=== PATIENT | female | born 1940 | race Caucasian/White ===

== ENCOUNTER → 2016-11-19 | Outpatient (REF) | payer MEDICARE ==
[~2016-11-19] MED LIST: AMIO20TA FT; ASPI81TA85 PO; ATOR40TA PO; CHLO25TA PO; COEN200C PO; CRAN500C2 PO; LEVO50TA5 PO; NITR3TA SL; PACE200T PO; PRIL20CA9 PO; TRAN2TAB4 PO; VITA200016 PO; XANA0.5T PO
[2016-11-19 12:51] LABS: ALBUMIN 3.7 GM/DL (3.2-5.2); ALBUMIN/GLOBULIN RATIO 1.54 (1.00-1.93); BILIRUBIN,TOTAL 0.5 MG/DL (0.2-1.0); CALCIUM LEVEL 8.7 MG/DL (8.8-10.2); CREATININE FOR GFR 1.15 MG/DL (0.55-1.02); FREE T4 1.62 NG/DL (0.76-1.46); GLOMERULAR FILTRATION RATE 48.6 (>39); POTASSIUM SERUM 3.7 MEQ/L (3.5-5.1); TOTAL PROTEIN 6.1 GM/DL (6.4-8.2)
== END ==
LOC: M SFHCPLAZ 09:36
PROVIDERS: ATTEND Nurse Practitioner Family
DX: I10 Essential (primary) hypertension (principal); E03.9 Hypothyroidism, unspecified; E55.9 Vitamin D deficiency, unspecified

== ENCOUNTER → 2016-11-30 | Outpatient (REF) | payer MEDICARE | LOC: M SFHCPLAZ 13:16 | PROVIDERS: ATTEND Nurse Practitioner Family | DX: I10 Essential (primary) hypertension (principal) | CPT/HCPCS: 82043; G0463 ==

== ENCOUNTER → 2017-02-12 | Outpatient (REF) | payer MEDICARE | LOC: M LAB REF 11:37 | PROVIDERS: ATTEND Nurse Practitioner Family | DX: R30.0 Dysuria (principal) ==

== ENCOUNTER → 2017-03-01 | Outpatient (CLI) | payer MEDICARE ==
[2017-03-01 14:35] LABS: FREE T4 1.77 NG/DL (0.76-1.46)
== END ==
LOC: M LAB 13:12
PROVIDERS: ATTEND Family Medicine
DX: E03.9 Hypothyroidism, unspecified (principal)

== ENCOUNTER → 2017-03-24 | Outpatient (CLI) | payer MEDICARE ==
[2017-03-24 18:35] LABS: BASO # 0.1 K/mm3 (0.0-0.2); BASO % 0.9 % (0.0-1.0); EOS # 0.2 K/mm3 (0.0-0.50); EOS % 2.1 % (0.0-3.0); LARGE UNSTAINED CELL # 0.2 K/mm3 (0.0-0.4); LARGE UNSTAINED CELL % 2.1 % (0.0-4.0); LYMPH # 0.8 K/mm3 (1.5-4.5); LYMPH % 10.5 % (24.0-44.0); MEAN CORPUSCULAR HEMOGLOBIN 27.2 pg (27.0-33.0); MEAN CORPUSCULAR HGB CONC 32.7 g/dl (32.0-36.5); MEAN CORPUSCULAR VOLUME 83.2 fl (80.0-96.0); MONO # 0.4 K/mm3 (0.0-0.8); MONO % 5.7 % (0.0-5.0); NEUTROPHILS # 6.1 K/mm3 (1.8-7.7); NEUTROPHILS % 78.6 % (36.0-66.0); PLATELET COUNT, AUTOMATED 240 k/mm3 (150-450); RED CELL DISTRIBUTION WIDTH 14.8 % (11.5-14.5); WHITE BLOOD COUNT 7.8 K/mm3 (4.0-10.0)
[2017-03-24 18:47] LABS: FREE T4 1.42 NG/DL (0.76-1.46)
== END ==
LOC: M LAB 16:58
PROVIDERS: ATTEND Nurse Practitioner Family
DX: R53.83 Other fatigue (principal); E03.9 Hypothyroidism, unspecified; E55.9 Vitamin D deficiency, unspecified

== ENCOUNTER → 2017-03-24 | Outpatient (REF) | payer MEDICARE | LOC: M SFHCPLAZ 16:11 | PROVIDERS: ATTEND Nurse Practitioner Family | DX: R53.83 Other fatigue (principal); E03.9 Hypothyroidism, unspecified; E55.9 Vitamin D deficiency, unspecified; Z53.8 Procedure and treatment not carried out for other reasons ==

== ENCOUNTER → 2017-05-12 | Outpatient (REF) | payer MEDICARE ==
[~2017-05-12] MED LIST changes: -ATOR40TA PO; +ATOR40TA75 PO; -TRAN2TAB4 PO; +TRAN2TAB8 PO
== END ==
LOC: M SFHCLERA 11:33
PROVIDERS: ATTEND Dermatology
DX: D23.4 Other benign neoplasm of skin of scalp and neck (principal)
CPT/HCPCS: 11100; 88305; G0463

== ENCOUNTER → 2017-05-31 | Outpatient (CLI) | payer MEDICARE ==
[2017-05-31 11:02] LABS: ALBUMIN 3.6 GM/DL (3.2-5.2); ALBUMIN/GLOBULIN RATIO 1.24 (1.00-1.93); BILIRUBIN,TOTAL 0.5 MG/DL (0.2-1.0); CALCIUM LEVEL 8.9 MG/DL (8.8-10.2); CREATININE FOR GFR 1.07 MG/DL (0.55-1.02); FREE T4 1.31 NG/DL (0.76-1.46); GLOMERULAR FILTRATION RATE 52.8 (>39); POTASSIUM SERUM 4.1 MEQ/L (3.5-5.1); TOTAL PROTEIN 6.5 GM/DL (6.4-8.2)
== END ==
LOC: M LAB 09:41
PROVIDERS: ATTEND Nurse Practitioner Family
DX: N18.3 Chronic kidney disease, stage 3 (moderate) (principal); E03.9 Hypothyroidism, unspecified; I12.9 Hypertensive chronic kidney disease with stage 1 through stage 4 chronic kidney disease, or unspecified chronic kidney disease

== ENCOUNTER → 2017-07-30 | Outpatient (CLI) | payer MEDICARE ==
[2017-07-30 14:57] LABS: FREE T4 1.49 NG/DL (0.76-1.46)
== END ==
LOC: M LAB 13:17
PROVIDERS: ATTEND Family Medicine
DX: E03.9 Hypothyroidism, unspecified (principal)

== ENCOUNTER → 2017-09-13 | Outpatient (REF) | payer MEDICARE ==
[2017-09-13 15:55] LABS: IONIZED CALCIUM 4.7 MG/DL (4.5-5.3)
[2017-09-13 16:48] LABS: CALCIUM LEVEL 9.1 MG/DL (8.8-10.2); CREATININE FOR GFR 1.2 MG/DL (0.55-1.02); FREE T4 1.52 NG/DL (0.76-1.46); GLOMERULAR FILTRATION RATE 46.3 (>39); MAGNESIUM LEVEL 2.4 MG/DL (1.8-2.4); POTASSIUM SERUM 3.9 MEQ/L (3.5-5.1)
[2017-09-13 18:55] LABS: BASO # 0.1 10^3/uL (0.0-0.2); BASO % 1.1 % (0.0-1.0); EOS # 0.2 10^3/uL (0.0-0.50); IMMATURE GRANULOCYTE % 1.1 % (0-0); LYMPH # 0.9 10^3/uL (1.5-4.5); LYMPH % 12.5 % (24.0-44.0); MEAN CORPUSCULAR HEMOGLOBIN 25.2 pg (27.0-33.0); MEAN CORPUSCULAR HGB CONC 31.4 g/dl (32.0-36.5); MEAN CORPUSCULAR VOLUME 80.4 fl (80.0-96.0); MONO # 0.7 10^3/uL (0.0-0.8); NEUTROPHILS # 5.4 10^3/uL (1.8-7.7); NEUTROPHILS % 73.3 % (36.0-66.0); PLATELET COUNT, AUTOMATED 254 10^3/uL (150-450); WHITE BLOOD COUNT 7.3 10^3/uL (4.0-10.0)
== END ==
LOC: M SFHCPLAZ 12:49
PROVIDERS: ATTEND Family Medicine
DX: E03.2 Hypothyroidism due to medicaments and other exogenous substances (principal); R25.2 Cramp and spasm; R61 Generalized hyperhidrosis
CPT/HCPCS: 36415; 80048; 82330; 83735; 84439; 84443; 84481; 85025; G0463

== ENCOUNTER → 2017-11-11 | Outpatient (CLI) | payer MEDICARE ==
[2017-11-12 14:13] LABS: SSA SJOGRENS A <0.2 AI (0.0-0.9); SSB SJOGRENS B <0.2 AI (0.0-0.9)
== END ==
LOC: M LAB 11:57
DX: H16.222 Keratoconjunctivitis sicca, not specified as Sjogren's, left eye (principal); H16.422 Pannus (corneal), left eye
CPT/HCPCS: 86235

== ENCOUNTER → 2017-11-19 | Outpatient (CLI) | payer MEDICARE ==
[2017-11-24 08:18] LABS: FREE T4 BY DIALYSIS DIRECT 1.3 ng/dL (.)
== END ==
LOC: M LAB 12:10
DX: E03.9 Hypothyroidism, unspecified (principal)
CPT/HCPCS: 84439

== ENCOUNTER → 2017-11-29 | Outpatient (CLI) | payer MEDICARE ==
[2017-11-29 12:18] LABS: HEMOGLOBIN 11.1 g/dl (12.0-16.0); MEAN CORPUSCULAR HEMOGLOBIN 24.3 pg (27.0-33.0); MEAN CORPUSCULAR HGB CONC 30.8 g/dl (32.0-36.5); MEAN CORPUSCULAR VOLUME 78.9 fl (80.0-96.0); PLATELET COUNT, AUTOMATED 254 10^3/uL (150-450); RED BLOOD COUNT 4.56 10^6/uL (4.00-5.40); RED CELL DISTRIBUTION WIDTH 16.1 % (11.5-14.5); WHITE BLOOD COUNT 5.9 10^3/uL (4.0-10.0)
[2017-11-29 12:30] LABS: ALBUMIN 3.9 GM/DL (3.2-5.2); ALBUMIN/GLOBULIN RATIO 1.34 (1.00-1.93); ALKALINE PHOSPHATASE 78 U/L (45-117); ALT/SGPT 26 U/L (12-78); ANION GAP 9 MEQ/L (8-16); AST/SGOT 21 U/L (7-37); BILIRUBIN,TOTAL 0.8 MG/DL (0.2-1.0); BLOOD UREA NITROGEN 20 MG/DL (7-18); CALCIUM LEVEL 8.7 MG/DL (8.8-10.2); CARBON DIOXIDE LEVEL 25 MEQ/L (21-32); CHLORIDE LEVEL 108 MEQ/L (98-107); CHOLESTEROL LEVEL 214 MG/DL (<200); CREATININE FOR GFR 1.09 MG/DL (0.55-1.30); FREE T4 1.46 NG/DL (0.76-1.46); GLOMERULAR FILTRATION RATE 51.5 (>39); GLUCOSE, FASTING 90 MG/DL (70-100); HDL CHOLESTEROL 100 MG/DL (>40); LDL CHOLESTEROL 101.2 MG/DL (<100); NON-HDL-C 114 MG/DL; SODIUM LEVEL 142 MEQ/L (136-145); TOTAL PROTEIN 6.8 GM/DL (6.4-8.2); TRIGLYCERIDES LEVEL 64 MG/DL (<150)
== END ==
LOC: M LAB 10:30
DX: E03.9 Hypothyroidism, unspecified (principal)
CPT/HCPCS: 84443

== ENCOUNTER → 2017-12-06 | Outpatient (CLI) | payer MEDICARE | LOC: M RAD 10:29 | DX: M51.26 Other intervertebral disc displacement, lumbar region (principal); M48.061 Spinal stenosis, lumbar region without neurogenic claudication | CPT/HCPCS: 72148 ==

== ENCOUNTER → 2017-12-30 | Outpatient (CLI) | payer MEDICARE ==
[2017-12-30 13:43] LABS: MAGNESIUM LEVEL 2.3 MG/DL (1.8-2.4)
== END ==
LOC: M LAB 11:46
DX: I48.0 Paroxysmal atrial fibrillation (principal)
CPT/HCPCS: 71046

== ENCOUNTER → 2018-03-09 | Outpatient (REF) | payer MEDICARE ==
[2018-03-09 22:02] LABS: ALBUMIN/GLOBULIN RATIO 1.33 (1.00-1.93); ALKALINE PHOSPHATASE 87 U/L (45-117); ALT/SGPT 32 U/L (12-78); ANION GAP 9 MEQ/L (8-16); AST/SGOT 24 U/L (7-37); BILIRUBIN,TOTAL 0.6 MG/DL (0.2-1.0); BLOOD UREA NITROGEN 16 MG/DL (7-18); CALCIUM LEVEL 8.7 MG/DL (8.8-10.2); CARBON DIOXIDE LEVEL 26 MEQ/L (21-32); CHLORIDE LEVEL 103 MEQ/L (98-107); CREATININE FOR GFR 1.24 MG/DL (0.55-1.30); FREE T4 1.44 NG/DL (0.76-1.46); GLOMERULAR FILTRATION RATE 44.4 (>39); GLUCOSE, FASTING 89 MG/DL (70-100); POTASSIUM SERUM 3.9 MEQ/L (3.5-5.1); SODIUM LEVEL 138 MEQ/L (136-145)
[2018-03-09 22:36] LABS: HEMATOCRIT 34.4 % (36.0-47.0); HEMOGLOBIN 10.7 g/dl (12.0-15.5); MEAN CORPUSCULAR HEMOGLOBIN 24.6 pg (27.0-33.0); MEAN CORPUSCULAR HGB CONC 31.1 g/dl (32.0-36.5); MEAN CORPUSCULAR VOLUME 79.1 fl (80.0-96.0); PLATELET COUNT, AUTOMATED 240 10^3/uL (150-450); RED BLOOD COUNT 4.35 10^6/uL (4.00-5.40); WHITE BLOOD COUNT 6.9 10^3/uL (4.0-10.0)
== END ==
LOC: M SFHCADAM 11:34
DX: I25.10 Atherosclerotic heart disease of native coronary artery without angina pectoris (principal); E03.9 Hypothyroidism, unspecified
CPT/HCPCS: 84443

== ENCOUNTER 2018-03-16 08:51 | Day surgery (SDC) | payer MEDICARE ==
[~2018-03-16 08:51] MED LIST changes: -AMIO20TA FT; -ASPI81TA85 PO; -ATOR40TA75 PO; -CHLO25TA PO; -COEN200C PO; -CRAN500C2 PO; -LEVO50TA5 PO; -NITR3TA SL; -PACE200T PO; -PRIL20CA9 PO; +PROPARACAINE 0.5% OPHTH SOL 15ML OS; -TRAN2TAB8 PO; -VITA200016 PO; -XANA0.5T PO
[2018-03-16] MEDS: LIDOCAINE 3.5 % 1ML OPHTH TOPICAL GEL OU (09:25)
[2018-03-16] MEDS: OFLOXACIN 0.3 % (OCUFLOX) OPTH SOL 5ML OS (09:26)
[2018-03-16] MEDS: TROPICAMIDE 1% OPHTH SOLN 2ML OS (09:27)
[2018-03-16] MEDS: CYCLOPENTOLATE 2% OPHTH SOLN 2ML BTL OS (09:28)
[2018-03-16] MEDS: PHENYLEPHRINE 2.5% OPHTH SOL 2ML OS (09:30)
[2018-03-16] MEDS ORDERED: MIDAZOLAM INJ 2 MG/2 ML VIAL (J2250) As Ordered ×2 (09:33→10:29)
[2018-03-16] MEDS: PHENYLEPHRINE HCL 10 % OPHTH. SOL 5ML OS (09:45)
[2018-03-16] MEDS: MIDAZOLAM INJ 2 MG/2 ML VIAL (J2250) IV (09:45)
[2018-03-16] MEDS ORDERED: fentaNYL 100 MCG/2 ML INJECTION (J3010) As Ordered (10:29)
[2018-03-16] MEDS: CEFUROXIME 1MG/0.1ML INTRACAMERAL INJ As Ordered (10:30)
[2018-03-16] MEDS: BALANCED SALT IRRIGATION SOL 500ML GLASS BOTTLE (FOR OR EYE COMPOUND) As Ordered (10:30)
[2018-03-16] MEDS: POVIDONE-IODINE 5% OPHTH PREP SOL 30ML As Ordered (10:30)
[2018-03-16] MEDS: HEALON DUET (HEALON 10MG/ML 0.55ML & HEALON ENDOCOAT 30MG/ML 0.85ML) As Ordered (10:30)
[2018-03-16] MEDS: LIDOCAINE 1% SDV 5 ML VIAL As Ordered (10:30)
[2018-03-16] MEDS: **hydrALAZINE** 10 MG TAB PO (11:16)
[2018-03-16] MEDS ORDERED: TRIMETHOBENZAMIDE 300 MG CAP PO (11:30)
[2018-03-16] MEDS: KETOROLAC 0.5% OPHTH SOLN OS (11:51)
== END 2018-03-16 12:07 | disposition home or self-care (01) ==
LOC: M SDC 08:51
DX: H25.12 Age-related nuclear cataract, left eye (principal); H57.03 Miosis; I48.91 Unspecified atrial fibrillation; I10 Essential (primary) hypertension; I25.10 Atherosclerotic heart disease of native coronary artery without angina pectoris; Z98.61 Coronary angioplasty status; E78.5 Hyperlipidemia, unspecified; Z87.891 Personal history of nicotine dependence; K21.9 Gastro-esophageal reflux disease without esophagitis; E03.9 Hypothyroidism, unspecified; Z88.2 Allergy status to sulfonamides; Z88.8 Allergy status to other drugs, medicaments and biological substances
CPT/HCPCS: 66982

== ENCOUNTER → 2018-04-05 | Outpatient (CLI) | payer MEDICARE ==
[2018-04-05 14:17] LABS: ANION GAP 9 MEQ/L (8-16); BLOOD UREA NITROGEN 16 MG/DL (7-18); CALCIUM LEVEL 8.6 MG/DL (8.8-10.2); CARBON DIOXIDE LEVEL 28 MEQ/L (21-32); CHLORIDE LEVEL 104 MEQ/L (98-107); CREATININE FOR GFR 1.07 MG/DL (0.55-1.30); GLOMERULAR FILTRATION RATE 52.7 (>39); GLUCOSE, FASTING 79 MG/DL (70-100); MAGNESIUM LEVEL 2.3 MG/DL (1.8-2.4); POTASSIUM SERUM 3.8 MEQ/L (3.5-5.1); SODIUM LEVEL 141 MEQ/L (136-145)
== END ==
LOC: M LAB 13:19
DX: I10 Essential (primary) hypertension (principal); I48.0 Paroxysmal atrial fibrillation
CPT/HCPCS: 83735

== ENCOUNTER → 2018-05-04 | Outpatient (REF) | payer MEDICARE | LOC: M LAB REF 09:12 | DX: N39.0 Urinary tract infection, site not specified (principal) | CPT/HCPCS: 87086 ==

== ENCOUNTER → 2018-05-21 | Outpatient (CLI) | payer MEDICARE ==
[2018-05-21 12:07] LABS: HEMATOCRIT 34.5 % (36.0-47.0); HEMOGLOBIN 11.1 g/dl (12.0-15.5); MEAN CORPUSCULAR HEMOGLOBIN 25.4 pg (27.0-33.0); MEAN CORPUSCULAR HGB CONC 32.2 g/dl (32.0-36.5); MEAN CORPUSCULAR VOLUME 78.9 fl (80.0-96.0); PLATELET COUNT, AUTOMATED 254 10^3/uL (150-450); RED BLOOD COUNT 4.37 10^6/uL (4.00-5.40); RED CELL DISTRIBUTION WIDTH 17.2 % (11.5-14.5); WHITE BLOOD COUNT 6.6 10^3/uL (4.0-10.0)
[2018-05-21 12:37] LABS: ANION GAP 7 MEQ/L (8-16); BLOOD UREA NITROGEN 19 MG/DL (7-18); CALCIUM LEVEL 8.8 MG/DL (8.8-10.2); CARBON DIOXIDE LEVEL 28 MEQ/L (21-32); CHLORIDE LEVEL 101 MEQ/L (98-107); CREATININE FOR GFR 1.17 MG/DL (0.55-1.30); FREE T4 1.14 NG/DL (0.76-1.46); GLOMERULAR FILTRATION RATE 47.5 (>39); GLUCOSE, FASTING 81 MG/DL (70-100); POTASSIUM SERUM 4.1 MEQ/L (3.5-5.1); SODIUM LEVEL 136 MEQ/L (136-145)
== END ==
LOC: M LAB 11:41
DX: N18.3 Chronic kidney disease, stage 3 (moderate) (principal); E03.9 Hypothyroidism, unspecified; F41.0 Panic disorder [episodic paroxysmal anxiety]
CPT/HCPCS: 84443

== ENCOUNTER → 2018-06-28 | Outpatient (CLI) | payer MEDICARE ==
[2018-06-28 13:40] LABS: ALBUMIN 3.8 GM/DL (3.2-5.2); ALBUMIN/GLOBULIN RATIO 1.41 (1.00-1.93); ALKALINE PHOSPHATASE 73 U/L (45-117); ALT/SGPT 34 U/L (12-78); AST/SGOT 25 U/L (7-37); BILIRUBIN,DIRECT 0.1 MG/DL (0.0-0.2); BILIRUBIN,TOTAL 0.4 MG/DL (0.2-1.0); MAGNESIUM LEVEL 2.4 MG/DL (1.8-2.4); TOTAL PROTEIN 6.5 GM/DL (6.4-8.2)
== END ==
LOC: M ADAMS 10:08
DX: I48.0 Paroxysmal atrial fibrillation (principal)
CPT/HCPCS: 83735

== ENCOUNTER → 2018-08-09 | Outpatient (REF) | payer MEDICARE ==
[2018-08-09 20:03] LABS: FREE T4 1.32 NG/DL (0.76-1.46)
== END ==
LOC: M SFHCADAM 14:26
DX: E03.9 Hypothyroidism, unspecified (principal)
CPT/HCPCS: 84443

== ENCOUNTER 2018-10-29 01:43 | Emergency (ER) | payer MEDICARE ==
[~2018-10-29] VITALS: Ht 170.2 cm; Wt 58.6 kg
[~2018-10-29 01:43] MED LIST changes: +AMIO20TA FT; +ASPI81TA85 PO; +ATOR1TAB21; +ATOR40TA75 PO; +CHLO25TA PO; +COEN200C PO; +CRAN500C2 PO; +INDA125TA; +LATA5OPD OU; +LEVO50TA5 PO; +NITR0.3S SL; +OMEP40CA2; +PACE200T PO; +PRIL20CA9 PO; -PROPARACAINE 0.5% OPHTH SOL 15ML OS; +TRAN1TAB48 PO; +VITA200016 PO; +XANA0.5T PO
[2018-10-29 02:36] LABS: BASO # 0.1 10^3/uL (0.0-0.2); BASO % 0.8 % (0.0-1.0); EOS # 0.2 10^3/uL (0.0-0.50); EOS % 3.6 % (0.0-3.0); HEMATOCRIT 32.3 % (36.0-47.0); HEMOGLOBIN 10.1 g/dl (12.0-15.5); LYMPH # 0.9 10^3/uL (1.5-4.5); LYMPH % 14.5 % (24.0-44.0); MEAN CORPUSCULAR HEMOGLOBIN 24.3 pg (27.0-33.0); MEAN CORPUSCULAR HGB CONC 31.3 g/dl (32.0-36.5); MEAN CORPUSCULAR VOLUME 77.6 fl (80.0-96.0); MONO # 0.6 10^3/uL (0.0-0.8); MONO % 9.9 % (0.0-5.0); NEUTROPHILS # 4.3 10^3/uL (1.8-7.7); NEUTROPHILS % 70.4 % (36.0-66.0); PLATELET COUNT, AUTOMATED 211 10^3/uL (150-450); RED BLOOD COUNT 4.16 10^6/uL (4.00-5.40); WHITE BLOOD COUNT 6.2 10^3/uL (4.0-10.0)
[2018-10-29 02:47] LABS: INR 1.01; PROTHROMBIN TIME 13.4 SECONDS (12.1-14.4)
[2018-10-29 02:48] LABS: PARTIAL THROMBOPLASTIN TIME 27.8 SECONDS (25.4-37.6)
[2018-10-29] MEDS ORDERED: hydrALAZINE INJ 20 MG/ML VIAL IV STA (03:06)
[2018-10-29 03:09] LABS: CALCIUM LEVEL 8.3 MG/DL (8.8-10.2); CREATININE FOR GFR 1.37 MG/DL (0.55-1.30); GLOMERULAR FILTRATION RATE 39.5 (>32); MB/CK RELATIVE INDEX 2.16 (< OR =4); POTASSIUM SERUM 3.6 MEQ/L (3.5-5.1); TROPONIN I 0.02 NG/ML (< 0.10)
[2018-10-29] MEDS ORDERED: ISOVUE-370 76% 100ML VIAL (Q9967) As Ordered ONE (03:42)
--- NOTE | 2018-10-29 05:22 | REPVR ---
EXAM: CT Angiography Chest With Contrast EXAM DATE/TIME: 10/29/2018 3:37 AM CLINICAL HISTORY: 78 years old, female; Pain; Chest pain; Type not specified; Prior surgery; Surgery date: 6+ months; Surgery type: Stents; Additional info: Cp TECHNIQUE: Axial computed tomographic angiography images of the chest with intravenous contrast using CT angiography protocol. All CT scans at this facility use at least one of these dose optimization techniques: automated exposure control; mA and/or kV adjustment per patient size (includes targeted exams where dose is matched to clinical indication); or iterative reconstruction. Coronal and sagittal reformatted images were created and reviewed. MIP reconstructed images were created and reviewed. CONTRAST: 75 ml of iso administered intravenously. COMPARISON: CT Chest with contrast 05/15/2013 1:55 AM FINDINGS: Pulmonary arteries: The pulmonary arteries are not enlarged. No filling defects are seen to indicate an acute pulmonary embolism. Aorta: The aorta demonstrates mild atherosclerotic calcification. There is no thoracic aortic aneurysm or evidence of dissection. Lungs: Mild peripheral septal thickening is seen in both lungs, more prominent toward the lung bases. There is mild paraseptal emphysema in both lung apices. There is no significant consolidation. Pleural space: There are no pleural effusions present. Heart: Coronary artery calcifications and/or stents are identified. The heart is overall normal in size, but there is enlargement of the left atrium. Upper abdomen: The visualized upper abdomen structures are unremarkable. Lymph nodes: No lymphadenopathy is seen. Bones/joints: There is a rightward convex curvature of the lower thoracic and upper lumbar spine. Soft tissues: Unremarkable. IMPRESSION: 1. No evidence of acute pulmonary embolism. 2. No thoracic aortic aneurysm or evidence of aortic dissection. Electronically signed by: Amy Barrow On 10/29/2018 05:21:33 AM
[2018-10-29 06:24] LABS: MB/CK RELATIVE INDEX 2.03 (< OR =4); TROPONIN I 0.02 NG/ML (< 0.10)
[2018-10-29 06:30] VITALS: BP 177/79
[2018-10-29] MEDS ORDERED: cloNIDine 0.2 MG TAB PO ONE (06:30)
[2018-10-29 06:39] VITALS: BP 177/79
--- NOTE | 2018-10-29 13:05 | REP ---
AP PORTABLE CHEST: 10/29/2018. Comparison: Chest x-ray 06/28/2018. Clinical history: Chest pain. Findings: The lungs hyperinflated with flattened hemidiaphragms there is new or tear curve mid-thoracic spine and a dextrorotatory curve thoracolumbar spine. No effusion, infiltrate, atelectasis or masses. No pneumothorax and mediastinum. Some minor apical pleural scarring noted. There is calcified aortic arch and tortuosity of the aorta which follows the curve of the scoliotic lower thoracic spine. No aneurysm. Impression: 1. No acute cardiopulmonary change. Stable examination. Electronically Signed by Jr Oliva MD 10/29/2018 02:02 P
--- NOTE | 2018-10-30 08:12 | ECGEPIP ---
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
--- NOTE | 2018-10-30 08:13 | ECGEPIP ---
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
== END 2018-10-29 07:01 | disposition home or self-care (01) ==
LOC: M ED 01:43
DX: R07.89 Other chest pain (principal); I11.9 Hypertensive heart disease without heart failure; E78.5 Hyperlipidemia, unspecified; I48.91 Unspecified atrial fibrillation; I25.10 Atherosclerotic heart disease of native coronary artery without angina pectoris; E07.9 Disorder of thyroid, unspecified; K21.9 Gastro-esophageal reflux disease without esophagitis; F41.9 Anxiety disorder, unspecified; Z95.5 Presence of coronary angioplasty implant and graft; Z88.8 Allergy status to other drugs, medicaments and biological substances; Z88.5 Allergy status to narcotic agent; Z88.1 Allergy status to other antibiotic agents; Z88.2 Allergy status to sulfonamides; Z79.899 Other long term (current) drug therapy
CPT/HCPCS: 71045; 71275; 80048; 82550; 82553; 84484; 85025; 85610; 85730; 93005; 96374; 99285; Q9967

== ENCOUNTER → 2018-12-15 | Outpatient (REF) | payer MEDICARE ==
[2018-12-15 19:22] LABS: HEMATOCRIT 36.9 % (36.0-47.0); MEAN CORPUSCULAR HEMOGLOBIN 23.8 pg (27.0-33.0); MEAN CORPUSCULAR HGB CONC 29.8 g/dl (32.0-36.5); MEAN CORPUSCULAR VOLUME 79.7 fl (80.0-96.0); PLATELET COUNT, AUTOMATED 264 10^3/uL (150-450); RED BLOOD COUNT 4.63 10^6/uL (4.00-5.40); WHITE BLOOD COUNT 8.5 10^3/uL (4.0-10.0)
[2018-12-15 19:41] LABS: ALBUMIN 3.9 GM/DL (3.2-5.2); BILIRUBIN,TOTAL 0.5 MG/DL (0.2-1.0); CALCIUM LEVEL 8.5 MG/DL (8.8-10.2); CHOLESTEROL RISK RATIO 2.586 (<5); CREATININE FOR GFR 1.4 MG/DL (0.55-1.30); FREE T4 1.56 NG/DL (0.76-1.46); GLOMERULAR FILTRATION RATE 38.5 (>32); MAGNESIUM LEVEL 2.3 MG/DL (1.8-2.4); POTASSIUM SERUM 4.7 MEQ/L (3.5-5.1); THYROID STIMULATING HORMONE 1.61 uIU/ML (0.358-3.740); TOTAL PROTEIN 6.9 GM/DL (6.4-8.2)
== END ==
LOC: M SFHCADAM 14:16
PROVIDERS: ATTEND Family Medicine
DX: E03.9 Hypothyroidism, unspecified (principal); I48.92 Unspecified atrial flutter; I11.9 Hypertensive heart disease without heart failure; E78.2 Mixed hyperlipidemia; N18.3 Chronic kidney disease, stage 3 (moderate); D63.1 Anemia in chronic kidney disease
CPT/HCPCS: 80053; 80061; 83735; 84439; 84443; 85027; G0463

== ENCOUNTER → 2019-02-22 | Outpatient (REF) | payer MEDICARE ==
[~2019-02-22] MED LIST changes: +AMIO200T22 FT; -AMIO20TA FT; +CHLO125TA PO; -CHLO25TA PO; +LATA0.0013 OU; -LATA5OPD OU
[2019-02-22 13:32] LABS: HEMATOCRIT 35.4 % (36.0-47.0); HEMOGLOBIN 10.8 g/dl (12.0-15.5); MEAN CORPUSCULAR HEMOGLOBIN 24.4 pg (27.0-33.0); MEAN CORPUSCULAR HGB CONC 30.5 g/dl (32.0-36.5); MEAN CORPUSCULAR VOLUME 79.9 fl (80.0-96.0); PLATELET COUNT, AUTOMATED 242 10^3/uL (150-450); RED BLOOD COUNT 4.43 10^6/uL (4.00-5.40); WHITE BLOOD COUNT 6.2 10^3/uL (4.0-10.0)
[2019-02-22 13:49] LABS: ALBUMIN 4.1 GM/DL (3.2-5.2); BILIRUBIN,TOTAL 0.4 MG/DL (0.2-1.0); CALCIUM LEVEL 9.3 MG/DL (8.8-10.2); CREATININE FOR GFR 1.26 MG/DL (0.55-1.30); FREE T4 1.4 NG/DL (0.76-1.46); GLOMERULAR FILTRATION RATE 43.5 (>32); POTASSIUM SERUM 3.9 MEQ/L (3.5-5.1); THYROID STIMULATING HORMONE 5.99 uIU/ML (0.358-3.740); TOTAL PROTEIN 6.6 GM/DL (6.4-8.2)
[2019-02-22 13:59] LABS: FOLATE 10.9 NG/ML (>5.4)
== END ==
LOC: M SFHCADAM 09:34
PROVIDERS: ATTEND Family Medicine
DX: E03.9 Hypothyroidism, unspecified (principal); R53.83 Other fatigue; N18.3 Chronic kidney disease, stage 3 (moderate)
CPT/HCPCS: 80053; 82306; 82607; 82746; 84439; 84443; 85027; G0463

== ENCOUNTER → 2019-06-20 | Outpatient (REF) | payer MEDICARE ==
[2019-06-20 19:56] LABS: ALBUMIN 3.9 GM/DL (3.2-5.2); BILIRUBIN,TOTAL 0.5 MG/DL (0.2-1.0); CALCIUM LEVEL 9.2 MG/DL (8.8-10.2); CREATININE FOR GFR 1.72 MG/DL (0.55-1.30); GLOMERULAR FILTRATION RATE 30.4 (>32); MAGNESIUM LEVEL 2.2 MG/DL (1.8-2.4); POTASSIUM SERUM 4.6 MEQ/L (3.5-5.1); THYROID STIMULATING HORMONE 5.72 uIU/ML (0.358-3.740); TOTAL PROTEIN 6.5 GM/DL (6.4-8.2)
== END ==
LOC: M LABDRWAD 19:11
PROVIDERS: ATTEND Physician Assistant
DX: I48.0 Paroxysmal atrial fibrillation (principal); I10 Essential (primary) hypertension

== ENCOUNTER → 2019-06-20 | Outpatient (CLI) | payer MEDICARE ==
--- NOTE | 2019-06-20 15:27 | REP ---
Chest, two views Indication: Paroxysmal atrial fibrillation. Comparison: Two-view chest of 06/28/2018. Findings: The cardiomediastinal silhouette is normal in appearance for size. There is normal pulmonary vascularity. There is no suspicious pulmonary nodule or focal new focal consolidation. The costophrenic angles are sharp. There is S-shaped thoracolumbar scoliosis as before. Impression: No acute cardiopulmonary process. Electronically Signed by Millie Romero MD 06/20/2019 03:18 P
== END ==
LOC: M ADAMS 14:02
PROVIDERS: ATTEND Physician Assistant
DX: I48.0 Paroxysmal atrial fibrillation (principal); I10 Essential (primary) hypertension

== ENCOUNTER → 2019-08-03 | Outpatient (REF) | payer MEDICARE ==
[~2019-08-03] MED LIST changes: -OMEP40CA2; +OMEP40CA97
[2019-08-03 17:16] LABS: FREE T4 1.79 NG/DL (0.76-1.46); THYROID STIMULATING HORMONE 0.781 uIU/ML (0.358-3.740)
== END ==
LOC: M SFHCADAM 14:59
PROVIDERS: ATTEND Family Medicine
DX: E03.9 Hypothyroidism, unspecified (principal)
CPT/HCPCS: 84439; 84443; G0463

== ENCOUNTER → 2020-01-03 | Outpatient (REF) | payer MEDICARE ==
[~2020-01-03] MED LIST changes: -COEN200C PO; +RA C200C2 PO
[2020-01-03 12:54] LABS: HEMATOCRIT 34.7 % (36.0-47.0); HEMOGLOBIN 10.6 g/dl (12.0-15.5); MEAN CORPUSCULAR HEMOGLOBIN 24.2 pg (27.0-33.0); MEAN CORPUSCULAR HGB CONC 30.5 g/dl (32.0-36.5); MEAN CORPUSCULAR VOLUME 79.2 fl (80.0-96.0); PLATELET COUNT, AUTOMATED 244 10^3/uL (150-450); RED BLOOD COUNT 4.38 10^6/uL (4.00-5.40)
[2020-01-03 13:09] LABS: ALBUMIN 3.8 GM/DL (3.2-5.2); BILIRUBIN,TOTAL 0.5 MG/DL (0.2-1.0); CALCIUM LEVEL 9.7 MG/DL (8.8-10.2); CHOLESTEROL RISK RATIO 2.333 (<5); CREATININE FOR GFR 1.27 MG/DL (0.55-1.30); FREE T4 1.63 NG/DL (0.76-1.46); PERCENT SATURATION 6.8 % (13.2-45.0); POTASSIUM SERUM 4.2 MEQ/L (3.5-5.1); THYROID STIMULATING HORMONE 1.31 uIU/ML (0.358-3.740); TOTAL PROTEIN 6.7 GM/DL (6.4-8.2)
== END ==
LOC: M SFHCADAM 09:58
PROVIDERS: ATTEND Family Medicine
DX: I25.10 Atherosclerotic heart disease of native coronary artery without angina pectoris (principal); N18.3 Chronic kidney disease, stage 3 (moderate); E03.9 Hypothyroidism, unspecified; E78.2 Mixed hyperlipidemia; D63.1 Anemia in chronic kidney disease

== ENCOUNTER → 2020-05-24 | Outpatient (CLI) | payer MEDICARE ==
[~2020-05-24] MED LIST changes: -ASPI81TA85 PO; +ASPI81TA86 PO
--- NOTE | 2020-07-03 11:01 | REP ---
CHEST X-RAY: TWO VIEWS HISTORY: Paroxysmal atrial fibrillation. COMPARISON: Chest x-ray 06/20/2019. FINDINGS: There is a [id number] thoracolumbar scoliosis again seen. The lungs are well-inflated and clear. The pleural angles are sharp. The heart is normal in size. There is mild vascular calcification in the thoracic aorta. Study was otherwise unremarkable. IMPRESSION: Scoliosis. Otherwise, no active disease. MTDD
== END ==
LOC: M LAB 13:55
PROVIDERS: ATTEND Physician Assistant
DX: I48.0 Paroxysmal atrial fibrillation (principal)

== ENCOUNTER 2020-06-06 16:01 | Emergency (ER) | payer MEDICARE ==
[~2020-06-06] VITALS: Ht 167.6 cm; Wt 54.1 kg
--- NOTE | 2020-06-06 17:11 | REPVR ---
PROCEDURE INFORMATION: Exam: US Duplex Left Lower Extremity Veins, Limited Exam date and time: 06/06/2020 4:56 PM Age: 79 years old Clinical indication: Pain; Leg, lower; Left TECHNIQUE: Imaging protocol: Real-time Duplex ultrasound of the Left Lower Extremity with 2-D kemp scale, color Doppler flow and spectral waveform analysis with image documentation. Limited exam focused on the left lower extremity veins. COMPARISON: No relevant prior studies available. FINDINGS: Left deep veins: Unremarkable. The common femoral, femoral, proximal profunda femoral and popliteal veins are patent without thrombus. Normal Doppler waveforms. Normal compressibility and/or augmentation response. Left superficial veins: Unremarkable. Saphenofemoral junction is patent without thrombus. Soft tissues: Unremarkable. IMPRESSION: No evidence of deep vein thrombosis. Electronically signed by: Nacho Zayas On 06/06/2020 17:12:20 PM
[2020-06-06 17:52] VITALS: BP 142/68
== END 2020-06-06 18:04 | disposition home or self-care (01) ==
LOC: M ED 16:01
DX: M79.662 Pain in left lower leg (principal); I48.91 Unspecified atrial fibrillation; I25.2 Old myocardial infarction; I10 Essential (primary) hypertension; E03.9 Hypothyroidism, unspecified; Z87.891 Personal history of nicotine dependence; Z95.5 Presence of coronary angioplasty implant and graft; Z79.82 Long term (current) use of aspirin; Z79.899 Other long term (current) drug therapy; Z88.8 Allergy status to other drugs, medicaments and biological substances; Z88.2 Allergy status to sulfonamides; Z88.6 Allergy status to analgesic agent; Z88.1 Allergy status to other antibiotic agents

== ENCOUNTER → 2020-06-25 | Outpatient (REF) | payer MEDICARE ==
[2020-06-25 17:52] LABS: HEMATOCRIT 34.1 % (36.0-47.0); HEMOGLOBIN 10.2 g/dl (12.0-15.5); MEAN CORPUSCULAR HEMOGLOBIN 23.7 pg (27.0-33.0); MEAN CORPUSCULAR HGB CONC 29.9 g/dl (32.0-36.5); MEAN CORPUSCULAR VOLUME 79.3 fl (80.0-96.0); PLATELET COUNT, AUTOMATED 242 10^3/uL (150-450); WHITE BLOOD COUNT 8.3 10^3/uL (4.0-10.0)
[2020-06-25 18:00] LABS: ALBUMIN 3.7 GM/DL (3.2-5.2); BILIRUBIN,TOTAL 0.4 MG/DL (0.2-1.0); CALCIUM LEVEL 9.4 MG/DL (8.8-10.2); CHOLESTEROL RISK RATIO 2.127 (<5); CREATININE FOR GFR 1.26 MG/DL (0.55-1.30); FREE T4 1.74 NG/DL (0.76-1.46); GLOMERULAR FILTRATION RATE 43.4 (>32); PERCENT SATURATION 7.9 % (13.2-45.0); POTASSIUM SERUM 4.8 MEQ/L (3.5-5.1); THYROID STIMULATING HORMONE 0.285 uIU/ML (0.358-3.740); TOTAL PROTEIN 6.8 GM/DL (6.4-8.2)
== END ==
LOC: M SFHCADAM 16:50
PROVIDERS: ATTEND Family Medicine
DX: N18.3 Chronic kidney disease, stage 3 (moderate) (principal); D63.1 Anemia in chronic kidney disease; E03.9 Hypothyroidism, unspecified

== ENCOUNTER → 2020-09-17 | Outpatient (REF) | payer MEDICARE ==
[~2020-09-17] MED LIST changes: -TRAN1TAB48 PO; +TRAN1TAB55 PO
[2020-09-17 17:39] LABS: HEMOGLOBIN 10.6 g/dl (12.0-15.5); MEAN CORPUSCULAR HEMOGLOBIN 24.6 pg (27.0-33.0); MEAN CORPUSCULAR HGB CONC 31.2 g/dl (32.0-36.5); MEAN CORPUSCULAR VOLUME 78.9 fl (80.0-96.0); PLATELET COUNT, AUTOMATED 294 10^3/uL (150-450); RED BLOOD COUNT 4.31 10^6/uL (4.00-5.40); WHITE BLOOD COUNT 7.5 10^3/uL (4.0-10.0)
[2020-09-17 18:00] LABS: ALBUMIN 3.9 GM/DL (3.2-5.2); BILIRUBIN,TOTAL 0.5 MG/DL (0.2-1.0); CALCIUM LEVEL 9.2 MG/DL (8.8-10.2); CREATININE FOR GFR 1.29 MG/DL (0.55-1.30); FREE T4 1.37 NG/DL (0.76-1.46); GLOMERULAR FILTRATION RATE 42.2 (>32); PERCENT SATURATION 8.3 % (13.2-45.0); POTASSIUM SERUM 5.2 MEQ/L (3.5-5.1); THYROID STIMULATING HORMONE 4.47 uIU/ML (0.358-3.740); TOTAL PROTEIN 6.8 GM/DL (6.4-8.2)
[2020-09-17 18:03] LABS: FOLATE 14.5 NG/ML (>5.4)
== END ==
LOC: M SFHCADAM 15:12
PROVIDERS: ATTEND Family Medicine
DX: I11.9 Hypertensive heart disease without heart failure (principal); R53.83 Other fatigue; D50.9 Iron deficiency anemia, unspecified; E03.9 Hypothyroidism, unspecified
CPT/HCPCS: 36415; 80053; 82607; 82728; 82746; 83550; 84439; 84443; 85027; G0463

== ENCOUNTER → 2020-10-13 | Outpatient (CLI) | payer MEDICARE ==
[~2020-10-13] MED LIST changes: +TRAN1TAB48 PO; -TRAN1TAB55 PO
== END ==
LOC: M LABSMTC 09:55
PROVIDERS: ATTEND Pediatrics
DX: Z20.828 Contact with and (suspected) exposure to other viral communicable diseases (principal)

== ENCOUNTER → 2020-11-20 | Outpatient (REF) | payer MEDICARE ==
[~2020-11-20] MED LIST changes: -TRAN1TAB48 PO; +TRAN1TAB55 PO
[2020-11-20 17:58] LABS: HEMATOCRIT 39.1 % (36.0-47.0); HEMOGLOBIN 12.7 g/dl (12.0-15.5); MEAN CORPUSCULAR HEMOGLOBIN 27.5 pg (27.0-33.0); MEAN CORPUSCULAR HGB CONC 32.5 g/dl (32.0-36.5); MEAN CORPUSCULAR VOLUME 84.6 fl (80.0-96.0); PLATELET COUNT, AUTOMATED 238 10^3/uL (150-450); RED BLOOD COUNT 4.62 10^6/uL (4.00-5.40); WHITE BLOOD COUNT 9.3 10^3/uL (4.0-10.0)
[2020-11-20 18:31] LABS: PERCENT SATURATION 14.6 % (13.2-45.0)
== END ==
LOC: M SFHCADAM 15:01
PROVIDERS: ATTEND Family Medicine
DX: D50.9 Iron deficiency anemia, unspecified (principal)
CPT/HCPCS: 82728; 83550; 85027; 85046; G0463

== ENCOUNTER 2021-02-10 13:10 | Inpatient (IN) | payer MEDICARE ==
[~2021-02-10] VITALS: Ht 167.6 cm; Wt 54.5 kg
[~2021-02-10 13:10] MED LIST changes: -ATOR1TAB21; +ATOR1TAB21 PO; -INDA125TA; +INDA125TA PO
[2021-02-10 14:10] LABS: BASO # 0.1 10^3/uL (0.0-0.2); BASO % 1.1 % (0.0-1.0); EOS # 0.1 10^3/uL (0.0-0.5); EOS % 1.2 % (0.0-3.0); HEMATOCRIT 40.5 % (36.0-47.0); HEMOGLOBIN 13.5 g/dl (12.0-15.5); LYMPH % 10.8 % (24.0-44.0); MEAN CORPUSCULAR HEMOGLOBIN 28.9 pg (27.0-33.0); MEAN CORPUSCULAR HGB CONC 33.3 g/dl (32.0-36.5); MEAN CORPUSCULAR VOLUME 86.7 fl (80.0-96.0); MONO # 0.7 10^3/uL (0.0-0.8); MONO % 7.1 % (2.0-8.0); NEUTROPHILS # 7.3 10^3/uL (1.5-8.5); NEUTROPHILS % 78.6 % (36.0-66.0); PLATELET COUNT, AUTOMATED 246 10^3/uL (150-450); RED BLOOD COUNT 4.67 10^6/uL (4.00-5.40); WHITE BLOOD COUNT 9.3 10^3/uL (4.0-10.0)
--- NOTE | 2021-02-10 14:26 | REP ---
INDICATION: CHEST PAIN. COMPARISON: 05/24/2020. TECHNIQUE: Single portable AP view of the chest was performed. FINDINGS: There is no acute infiltrate or pulmonary edema. Lungs are clear. The heart is not significantly enlarged. There is calcification and tortuosity of the thoracic aorta. The mediastinal silhouette is unchanged.. The visualized osseous structures are intact. IMPRESSION: No acute pulmonary disease. <Electronically signed by Cm Duncan > 02/10/21 [id number]
[2021-02-10 14:55] LABS: ALBUMIN 4.1 GM/DL (3.2-5.2); ALT/SGPT 23 U/L (12-78); BILIRUBIN,DIRECT < 0.1 MG/DL (0.0-0.2); BILIRUBIN,TOTAL 0.7 MG/DL (0.2-1.0); BLOOD UREA NITROGEN 17 MG/DL (7-18); CALCIUM LEVEL 9.7 MG/DL (8.8-10.2); CARBON DIOXIDE LEVEL 25 MEQ/L (21-32); CHLORIDE LEVEL 98 MEQ/L (98-107); CK-MB VALUE MASS < 1.0 NG/ML (<3.6); CPK CREATINE PHOSPHOKINASE 186 U/L (26-192); CREATININE FOR GFR 1.21 MG/DL (0.55-1.30); FREE T4 1.53 NG/DL (0.76-1.46); GLOMERULAR FILTRATION RATE 45.4 (>32); GLUCOSE, FASTING 110 MG/DL (70-100); LIPASE 176 U/L (73-393); MB/CK RELATIVE INDEX 0.54 (< OR =4); POTASSIUM SERUM 5.4 MEQ/L (3.5-5.1); SODIUM LEVEL 132 MEQ/L (136-145); TOTAL PROTEIN 7.3 GM/DL (6.4-8.2); TROPONIN I < 0.02 NG/ML (< 0.10)
--- NOTE | 2021-02-10 14:59 | REP ---
INDICATION: dizzy/weak. COMPARISON: None. TECHNIQUE: CT brain performed in the axial plane. Coronal reconstruction images are performed. FINDINGS: There is mild atrophy. There is no midline shift or mass effect. There are mild periventricular white matter lucencies most consistent with mild chronic periventricular small vessel ischemic changes. There is no acute intracranial hemorrhage or extra-axial fluid collection. Vascular calcifications are seen in the carotid siphons. The visualized paranasal sinuses and mastoid air cells are clear. IMPRESSION: Mild chronic changes as discussed above. No acute intracranial pathology identified. <Electronically signed by Cm Duncan > 02/10/21 [id number]
[2021-02-10] MEDS ORDERED: NS 500 ML IV ONE (16:10)
[2021-02-10] MEDS ORDERED: SOD POLYSTYRENE SULFONATE SUSP 15 GM/60 ML UD PO ONE (16:40)
[2021-02-10] MEDS ORDERED: TRAN1TAB56 PO (17:15)
[2021-02-10] MEDS ORDERED: OMEP-221 PO (17:15)
[2021-02-10] MEDS ORDERED: HumuLIN R (REGULAR) INSULIN (NovoLIN R) **100U/ML** PER UNIT IV STA (17:25)
[2021-02-10] MEDS ORDERED: CALCIUM GLUCONATE 1,000 MG in D5W MINI-BAG PLUS 100 ML IV ONE (17:25)
[2021-02-10] MEDS ORDERED: DEXTROSE 50% 50 ML SYRINGE IV STA (17:25)
--- NOTE | 2021-02-10 17:44 | HPEPDOC ---
General Date of Admission 02/10/21 Date of Service: February 10, 2021 Chief Complaint The patient is a 80-year-old female admitted with a reason for visit of Weakness, Heart Palp. Source: Patient Exam Limitations: No limitations Timing/Duration: Day(s) History of Present Illness Patient is 80 years old female with past medical history of coronary artery diseases, [place] with stents placement, hypothyroidism presented to the hospital with generalized weakness. Patient stated that for past 2 weeks she has been having increased generalized weakness and lightheadedness. Yesterday she reported that she fell down on her knee because of lightheadedness. She denied any head trauma or injury. She didn't lose her consciousness. Yesterday night patient had some chest tightness palpitations resolved after few hours. In ER patient was found to have systolic blood pressure of 180, no leukocytosis, potassium 5.4, negative troponin. EKG did not show any acute ischemic changes. Head CT negative for trauma or acute stroke. Chest x-ray negative for acute pulmonary diseases. Home Medications Scheduled Amiodarone Hcl (Pacerone) 200 Mg Tab, 100 MG PO DAILY, (Reported) Aspirin (Aspir 81) 81 Mg Tab, 81 MG PO DAILY, (Reported) Atorvastatin Calcium (Atorvastatin Calcium) 20 Mg Tab, DAILY, (Reported) Cholecalciferol (Vitamin D3) (Vitamin D3) 2,000 Unit Cap, 2,000 UNIT PO DAILY, (Reported) Cranberry Extract (Cranberry) 500 Mg Cap, 500 MG PO DAILY, (Reported) Indapamide (Indapamide) 1.25 Mg Tab, 0.5 TAB DAILY, (Reported) Latanoprost (Latanoprost) 50 Drop/2.5 Ml Soln, OU QHS, (Reported) Levothyroxine Sodium (Levothyroxine Sodium) 50 Mcg Tab, 50 MCG PO DAILY, (Report ed) Nitroglycerin (Nitrostat) 0.3 Mg Subl, 0.3 MG SL PRN, (Reported) Omeprazole (Omeprazole) 40 Mg Capsule.dr, 40 MG PO DAILY, (Reported) Trandolapril (Trandolapril) 4 Mg Tablet, 4 MG PO DAILY, (Reported) Ubidecarenone (Coenzyme Q10) 200 Mg Cap, 200 MG PO DAILY, (Reported) Scheduled PRN Alprazolam (Xanax) 0.5 Mg Tab, 0.5 MG PO PRN PRN for ANXIETY, (Reported) Allergies Coded Allergies: Sulfa (Sulfonamide Antibiotics) (Verified Allergy, Intermediate, swelling, 06/06/20) acetaminophen (Unverified Allergy, Unknown, 06/06/20) chlorpheniramine (Unverified Allergy, Unknown, 06/06/20) hydrocodone (Unverified Allergy, Unknown, 06/06/20) prednisone (Unverified Allergy, Unknown, 06/06/20) propoxyphene (Unverified Allergy, Unknown, 06/06/20) Quinolones (Verified Adverse Reaction, Intermediate, palpitations, 06/06/20) Unuldph-Dcb-Rlf Reductase Inhibitor (Verified Adverse Reaction, Intermediate, MUSCLE WEAKNESS, 06/06/20) ciprofloxacin (Verified Adverse Reaction, Intermediate, makes me act funny, 06/06/20) metoprolol (Verified Adverse Reaction, Intermediate, bradycardia, 06/06/20) Past Medical History Medical History CORONARY ARTERY DISEASE STATUS POST NON-Q CO 05/2000, PTCA LAD 06/2000; RCA 2007; RCA 05/23 NST 07/21: NL PERFUSION, EF 73%, NST 09/23 NO PERFUSION ABNL, EF 79%; NST 12/26: EF 70%, NL PERFUSION HYPOTHYROIDISM-- SAW ENDO 2017 FOR ELEV TSH WITH ELEVATED FREE T4 (ENDO HAD NO EXPLANATION, SUGGESTED FOLLOWING THE FREE T4) OSTEOPENIA DEXA DEXA 10/11 NORMAL ? PFO (SEE ECHO 07/28): 10/2005 MILD MR; 05/25: LAE 39 MM, EF 85%, THICKENING; ECHO 07/28: EF 60%, LA 37 MM, MILD-MOD MR; SMALL PFO OR ASD SUSPECTED WITH SMALL AMT LEFT TO RT ATRIAL SHUNTING HYPERCHOLESTEROLEMIA ATRIAL FLUTTER COVERTED TO NSR HTN ATROPHIC VAGINITIS VITAMIN D DEFICIENCY GLAUCOMA ANXIETY/PANIC ATTACK RECURRENT UTI'S--W/U SYR 04/20 HYPOGLYCEMIA (CONFIRMED WITH HOME HGM---SEE 07/22 NOTE) TREMOR (? FROM AMIODARONE) PREDM PNEUMONIA MACULAR DEGENERATION H ZOSTER X 3--DECLINES SHINGRIX 06/28 LUMBAR SPINAL STENOSIS JORDAN L4-L5, ALSO L2-3 ANS L3-4 Surgical History HYSTERECTOMY, TOTAL WITH BSO 1959 (REPEATEDLY DECLINES COLONOSCOPY) PTCA LAD 06/2000 CARDIAC CATH LAD PATENT, MULTI STENT PROCEDURE WITH QIANA TO RCA EF 75% 05/2007 PTCA/STENT RCA 05/23 EGD--"CHEMICAL GASTRITIS" ON BX 12/24 Family History FATHER: , CO IN 70 MOTHER: , CO IN 70 Social History * Smoker: former Smoker Alcohol: Denies Drugs: denies A-FIB/CHADSVASC A-FIB History Current/History of A-Fib/PAF?: No Current PO Anticoag Therapy: No Review of Systems Constitutional: Reports: Weakness; Denies: Chills Eyes: Denies: Pain Skin: Denies: Rash, Lesions Pulmonary: Denies: Dyspnea Cardiovascular: Reports: Chest Pain Gastrointestinal: Denies: Nausea, Vomiting Genitourinary: Denies: Dysuria Hematologic: Denies: Bruising Endocrine: Denies: Polydipsia, Polyphagia Musculoskeletal: Denies: Neck Pain Neurological: Denies: Weakness Psych: Reports: Mood Normal Physical Examination General Exam: Positive: Alert, Cooperative Eye Exam: Positive: PERRLA ENT Exam: Positive: Atraumatic Neck Exam: Positive: Supple; Negative: JVD Chest Exam: Positive: Clear to auscultation Heart Exam: Positive: Rate Normal Telemetry: Positive: No significant arrhythmia Abdomen Exam: Positive: Normal bowel sounds Extremity Exam: Negative: Clubbing, Cyanosis Skin Exam: Positive: Nl turgor and temperature Neuro Exam: Positive: Strength at 5/5 X4 ext, Cranial Nerves 3-12 NL Psych Exam: Positive: Mental status NL, Oriented x 3 Vital Signs Vital Signs Date Time Temp Pulse Resp B/P (MAP) Pulse Ox O2 Delivery O2 Flow Rate FiO2 02/10/21 15:56 62 183/78 (113) 02/10/21 15:40 98 02/10/21 14:55 18 Room Air 02/10/21 13:18 97.9 Laboratory Data Labs 24H Laboratory Tests 2 02/10/21 13:45: Immature Granulocyte % (Auto) 1.2, Neutrophils (%) (Auto) 78.6H, Lymphocytes (%) (Auto) 10.8L, Monocytes (%) (Auto) 7.1, Eosinophils (%) (Auto) 1.2, Basophils (%) (Auto) 1.1H, Neutrophils # (Auto) 7.3, Lymphocytes # (Auto) 1.0L, Monocytes # (Auto) 0.7, Eosinophils # (Auto) 0.1, Basophils # (Auto) 0.1, Nucleated Red Blood Cells % (auto) 0.0, Anion Gap 9, Glomerular Filtration Rate 45.4, Calcium Level 9.7, Total Bilirubin 0.7, Direct Bilirubin < 0.1, Aspartate Amino Transf (AST/SGOT) 49H, Alanine Aminotransferase (ALT/SGPT) 23, Alkaline Phosphatase 78, Total Creatine Kinase 186, Creatine Kinase MB < 1.0, Creatine Kinase MB Relative Index 0.54, Troponin I < 0.02, Total Protein 7.3, Albumin 4.1, Albumin/Globulin Ratio 1.3, Lipase 176, Thyroid Stimulating Hormone (TSH) 4.380H, Free Thyroxine 1.53H 02/10/21 17:18: CBC/BMP Laboratory Tests 02/10/21 13:45 02/10/21 15:59 Assessment/Plan Patient is 80 years old female with past medical history of coronary artery diseases, [place] with stents placement, hypothyroidism presented to the hospital with generalized weakness. Patient stated that for past 2 weeks she has been having increased generalized weakness and lightheadedness. Yesterday she reported that she fell down on her knee because of lightheadedness. She denied any head trauma or injury. She didn't lose her consciousness. Yesterday night patient had some chest tightness palpitations resolved after few hours. In ER patient was found to have systolic blood pressure of 180, no leukocytosis, potassium 5.4, negative troponin. EKG did not show any acute ischemic changes. Head CT negative for trauma or acute stroke. Chest x-ray negative for acute pulmonary diseases. Problems (1) Hypertensive urgency Status: Acute Problem Text: Patient stated that she didn't take her morning pills I will give her 20 mg of lisinopril Will restart home meds (2) Hyperkalemia Status: Acute Problem Text: Calcium gluconate, Kayexalate, 10 units of IV insulin with glucose D50 Most likely secondary to medication side effect, ONEIDA inhibitor Continue to monitor potassium (3) Chest pain Status: Chronic Problem Text: Patient didn't have any chest pain today EKG negative, EKG didn't show any acute ischemic changes Continue home meds (4) Generalized weakness Status: Acute Problem Text: PT/OT Patient lives alone, possible placement (5) Coronary artery disease Status: Chronic Problem Text: Continue home meds Patient denies any chest pain Plan / VTE VTE Prophylaxis Ordered?: Yes KAITE CALDERÓN DO February 10, 2021 17:44
[2021-02-10 18:09] LABS: RSV AMPLIFICATION NEGATIVE (NEGATIVE)
[2021-02-10] MEDS ORDERED: CVS500CA5 PO (18:40)
[2021-02-10] MEDS ORDERED: XALA0.007 OU (18:40)
[2021-02-10] MEDS ORDERED: VITA200015 PO (18:40)
[2021-02-10] MEDS ORDERED: ASPI81TA26 PO (18:40)
[2021-02-10 18:48] LABS: POTASSIUM SERUM 3.7 MEQ/L (3.5-5.1)
[2021-02-10] MEDS ORDERED: NITR0.4S14 SL (19:14)
[2021-02-10 19:43] LABS: MAGNESIUM LEVEL 2.2 MG/DL (1.8-2.4)
--- NOTE | 2021-02-10 19:49 | ECGEPIP ---
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
[2021-02-11 07:07] LABS: HEMATOCRIT 39.1 % (36.0-47.0); HEMOGLOBIN 13.2 g/dl (12.0-15.5); MEAN CORPUSCULAR HGB CONC 33.8 g/dl (32.0-36.5); MEAN CORPUSCULAR VOLUME 85.9 fl (80.0-96.0); PLATELET COUNT, AUTOMATED 213 10^3/uL (150-450); RED BLOOD COUNT 4.55 10^6/uL (4.00-5.40); WHITE BLOOD COUNT 6.8 10^3/uL (4.0-10.0)
[2021-02-11 07:31] LABS: ALBUMIN 3.6 GM/DL (3.2-5.2); BILIRUBIN,TOTAL 0.9 MG/DL (0.2-1.0); CALCIUM LEVEL 9.1 MG/DL (8.8-10.2); CREATININE FOR GFR 1.02 MG/DL (0.55-1.30); GLOMERULAR FILTRATION RATE 55.2 (>32); MAGNESIUM LEVEL 2.2 MG/DL (1.8-2.4); POTASSIUM SERUM 3.3 MEQ/L (3.5-5.1); TOTAL PROTEIN 6.6 GM/DL (6.4-8.2)
[2021-02-11] MEDS ORDERED: hydrALAZINE 20MG/ML 1ML VIAL (J0360 PER 20MG) IV ONE (08:15)
[2021-02-11] MEDS ORDERED: NITROGLYCERIN 0.4 MG SUBL TABLET SL PRN (08:20)
[2021-02-11] MEDS: ALPRAZolam 0.5 MG TAB PO PRN ×2 (08:44→22:46)
[2021-02-11] MEDS: ASPIRIN 81MG ENTERIC TABLET PO SCH (08:45)
[2021-02-11] MEDS: LEVOTHYROXINE 50MCG TABLET (0.05MG) PO SCH (08:45)
[2021-02-11] MEDS: ENOXAPARIN 40MG/0.4ML SYRINGE (J1650 PER 10MG) SC SCH (08:45)
[2021-02-11] MEDS: lisinopriL 40 MG TAB PO SCH (08:47)
[2021-02-11] MEDS: OMEPRAZOLE 20 MG CAP PO SCH (08:47)
[2021-02-11] MEDS ORDERED: POTASSIUM CHLORIDE 10 MEQ SR TABLET PO ONE (09:00)
[2021-02-11] MEDS ORDERED: AMIODARONE 200 MG TAB (PACERONE) PO SCH (09:00)
--- NOTE | 2021-02-11 15:45 | IPNPDOC ---
Text Note Date of Service The patient was seen on 02/11/21. NOTE Subjective: No any acute events overnight. Patient had elevated systolic blood pressure of 180 the morning. Patient denied any chest pain, palpitations Objective: GENERAL APPEARANCE: NAD HEENT: no scleral icterus, no JVD, EOMI CARDIOVASCULAR: S1S2 LUNGS: CTA ABDOMEN: soft & not tender w palpitation MUSCULOSKELETAL: no cyanosis, no swelling INTEGUMENT: no generalized pallor NEUROLOGICAL: cranial nerve function from 2-12 intact intact, follows commands, speech not dysarthric Assessment/Plan Patient is 80 years old female with past medical history of coronary artery diseases, [place] with stents placement, hypothyroidism presented to the hospital with generalized weakness. Patient stated that for past 2 weeks she has been having increased generalized weakness and lightheadedness. Yesterday she reported that she fell down on her knee because of lightheadedness. She denied any head trauma or injury. She didn't lose her consciousness. Yesterday night patient had some chest tightness palpitations resolved after few hours. In ER patient was found to have systolic blood pressure of 180, no leukocytosis, potassium 5.4, negative troponin. EKG did not show any acute ischemic changes. Head CT negative for trauma or acute stroke. Chest x-ray negative for acute pulmonary diseases. Problems (1) Hypertensive urgency/hypertension Hydralazine IV when necessary Lisinopril 40 mg (2) Hyperkalemia resolved (3) Chest pain resolved Patient didn't have any chest pain today EKG negative, EKG didn't show any acute ischemic changes Continue home meds (4) Generalized weakness PT/OT Patient lives alone, possible placement (5) Coronary artery disease Continue home meds Patient denies any chest pain VS,Fishbone, I+O VS, Fishbone, I+O Laboratory Tests 02/10/21 15:59 02/10/21 18:11 02/10/21 21:35 02/11/21 01:34 02/11/21 06:47 02/11/21 09:40 02/11/21 13:29 Vital Signs Date Time Temp Pulse Resp B/P (MAP) Pulse Ox O2 Delivery O2 Flow Rate FiO2 02/11/21 14:55 97.3 63 20 147/66 (93) 100 Room Air I&O- Last 24 Hours up to 6 AM 02/11/21 06:00 Intake Total 610 ml Balance 610 ml KATIE CALDERÓN DO February 11, 2021 15:45
[2021-02-11] MEDS: hydrALAZINE 20MG/ML 1ML VIAL (J0360 PER 20MG) IV PRN (19:58)
[2021-02-11 20:40] VITALS: BP 148/65
[2021-02-11] MEDS ORDERED: trandolapriL 1 MG TAB PO SCH (21:00)
[2021-02-11] MEDS: ATORVASTATIN 20 MG TAB PO SCH (21:48)
[2021-02-11] MEDS: LATANOPROST 0.005% OPHTH SOLN 2.5 ML OU SCH (22:40)
[2021-02-11] MEDS: ACETAMINOPHEN TAB 650MG DOSE (2X325MG) PO PRN (23:09)
[2021-02-12] VITALS (9 sets, daily range): BP systolic 119–185; BP diastolic 53–77; PULSE 62
[2021-02-12] MEDS: LEVOTHYROXINE 50MCG TABLET (0.05MG) PO SCH (06:02)
[2021-02-12] MEDS: ACETAMINOPHEN TAB 650MG DOSE (2X325MG) PO PRN ×2 (06:15→18:47)
[2021-02-12] MEDS: hydrALAZINE 20MG/ML 1ML VIAL (J0360 PER 20MG) IV PRN (06:15)
[2021-02-12 06:22] LABS: BASO # 0.1 10^3/uL (0.0-0.2); BASO % 1.4 % (0.0-1.0); EOS # 0.3 10^3/uL (0.0-0.5); EOS % 4.6 % (0.0-3.0); HEMATOCRIT 38.3 % (36.0-47.0); HEMOGLOBIN 12.7 g/dl (12.0-15.5); LYMPH % 16.5 % (24.0-44.0); MEAN CORPUSCULAR HEMOGLOBIN 28.7 pg (27.0-33.0); MEAN CORPUSCULAR HGB CONC 33.2 g/dl (32.0-36.5); MEAN CORPUSCULAR VOLUME 86.7 fl (80.0-96.0); MONO # 0.6 10^3/uL (0.0-0.8); MONO % 10.2 % (2.0-8.0); NEUTROPHILS # 4.1 10^3/uL (1.5-8.5); NEUTROPHILS % 66.2 % (36.0-66.0); PLATELET COUNT, AUTOMATED 219 10^3/uL (150-450); RED BLOOD COUNT 4.42 10^6/uL (4.00-5.40); WHITE BLOOD COUNT 6.3 10^3/uL (4.0-10.0)
[2021-02-12 06:47] LABS: ALBUMIN 3.4 GM/DL (3.2-5.2); BILIRUBIN,TOTAL 0.7 MG/DL (0.2-1.0); CALCIUM LEVEL 9.3 MG/DL (8.8-10.2); CREATININE FOR GFR 1.17 MG/DL (0.55-1.30); GLOMERULAR FILTRATION RATE 47.1 (>32); MAGNESIUM LEVEL 2.4 MG/DL (1.8-2.4); POTASSIUM SERUM 3.9 MEQ/L (3.5-5.1); TOTAL PROTEIN 6.2 GM/DL (6.4-8.2)
[2021-02-12] MEDS: ASPIRIN 81MG ENTERIC TABLET PO SCH (08:11)
[2021-02-12] MEDS: OMEPRAZOLE 20 MG CAP PO SCH (08:11)
[2021-02-12] MEDS: lisinopriL 40 MG TAB PO SCH (08:12)
[2021-02-12] MEDS: ENOXAPARIN 40MG/0.4ML SYRINGE (J1650 PER 10MG) SC SCH ×2 (08:12→08:18)
--- NOTE | 2021-02-12 08:13 | ECGEPIP ---
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 Small inferior Q waves with ST/T wave abnormalities; rule out prior IWMI. Slightly faster heart rate but otherwise unchanged from 02/10/21 Electronically Signed on 02-12-2021 8:12:53 EDT by Bernabe Major
[2021-02-12 08:43] LABS: CK-MB VALUE MASS 1.1 NG/ML (<3.6); CPK CREATINE PHOSPHOKINASE 69 U/L (26-192); MB/CK RELATIVE INDEX 1.59 (< OR =4); TROPONIN I < 0.02 NG/ML (< 0.10)
--- NOTE | 2021-02-12 10:23 | IPNPDOC ---
Text Note Date of Service The patient was seen on 02/12/21. NOTE Subjective: Patient complains of right-sided chest pain, 4 out of 10 last around 20 minutes, no palpitations. Objective: GENERAL APPEARANCE: NAD HEENT: no scleral icterus, no JVD, EOMI CARDIOVASCULAR: S1S2 LUNGS: CTA ABDOMEN: soft & not tender w palpitation MUSCULOSKELETAL: no cyanosis, no swelling, right-sided chest at the level of 3-4 ribs tenderness on palpation INTEGUMENT: no generalized pallor NEUROLOGICAL: cranial nerve function from 2-12 intact intact, follows commands, speech not dysarthric Assessment/Plan Patient is 80 years old female with past medical history of coronary artery diseases, [place] with stents placement, hypothyroidism presented to the hospital with generalized weakness. Patient stated that for past 2 weeks she has been having increased generalized weakness and lightheadedness. Yesterday she reported that she fell down on her knee because of lightheadedness. She denied any head trauma or injury. She didn't lose her consciousness. Yesterday night patient had some chest tightness palpitations resolved after few hours. In ER patient was found to have systolic blood pressure of 180, no leukocytosis, potassium 5.4, negative troponin. EKG did not show any acute ischemic changes. Head CT negative for trauma or acute stroke. Chest x-ray negative for acute pulmonary diseases. Problems (1) Hypertensive urgency/hypertension Hydralazine IV when necessary Lisinopril 40 mg I added amlodipine 10 mg (2) Hyperkalemia resolved (3) Chest pain Most likely musculoskeletal Troponin negative EKG negative, EKG didn't show any acute ischemic changes Continue home meds (4) Generalized weakness PT/OT Patient lives alone, possible placement (5) Coronary artery disease Continue home meds VS,Fishbone, I+O VS, Fishbone, I+O Laboratory Tests 02/11/21 13:29 02/12/21 06:01 Vital Signs Date Time Temp Pulse Resp B/P (MAP) Pulse Ox O2 Delivery O2 Flow Rate FiO2 02/12/21 08:12 63 133/56 02/12/21 07:31 97.2 18 100 Room Air I&O- Last 24 Hours up to 6 AM 02/12/21 06:00 Intake Total 180 ml Output Total 500 ml Balance -320 ml KATIE CALDERÓN DO February 12, 2021 10:23
[2021-02-12] MEDS: ALPRAZolam 0.5 MG TAB PO PRN (12:42)
[2021-02-12] MEDS: LATANOPROST 0.005% OPHTH SOLN 2.5 ML OU SCH (20:19)
[2021-02-12] MEDS: ATORVASTATIN 20 MG TAB PO SCH (20:19)
[2021-02-13] VITALS: BP 139/63
[2021-02-13] MEDS: ALPRAZolam 0.5 MG TAB PO PRN (00:47)
[2021-02-13 04:00] VITALS: BP 113/56
[2021-02-13] MEDS: LEVOTHYROXINE 50MCG TABLET (0.05MG) PO SCH (05:54)
[2021-02-13 06:09] LABS: BASO # 0.1 10^3/uL (0.0-0.2); BASO % 1.3 % (0.0-1.0); EOS # 0.4 10^3/uL (0.0-0.5); EOS % 5.4 % (0.0-3.0); HEMATOCRIT 35.4 % (36.0-47.0); HEMOGLOBIN 11.6 g/dl (12.0-15.5); LYMPH # 1.3 10^3/uL (1.5-5.0); MEAN CORPUSCULAR HEMOGLOBIN 28.5 pg (27.0-33.0); MEAN CORPUSCULAR HGB CONC 32.8 g/dl (32.0-36.5); MONO # 0.7 10^3/uL (0.0-0.8); MONO % 9.5 % (2.0-8.0); NEUTROPHILS # 4.4 10^3/uL (1.5-8.5); NEUTROPHILS % 63.6 % (36.0-66.0); PLATELET COUNT, AUTOMATED 229 10^3/uL (150-450); RED BLOOD COUNT 4.07 10^6/uL (4.00-5.40); WHITE BLOOD COUNT 6.9 10^3/uL (4.0-10.0)
[2021-02-13 06:40] LABS: ALBUMIN 3.3 GM/DL (3.2-5.2); BILIRUBIN,TOTAL 0.5 MG/DL (0.2-1.0); CALCIUM LEVEL 8.6 MG/DL (8.8-10.2); CREATININE FOR GFR 1.46 MG/DL (0.55-1.30); GLOMERULAR FILTRATION RATE 36.5 (>32); MAGNESIUM LEVEL 2.4 MG/DL (1.8-2.4); POTASSIUM SERUM 3.8 MEQ/L (3.5-5.1)
[2021-02-13 07:18] VITALS: BP 142/63
[2021-02-13] MEDS: ENOXAPARIN 40MG/0.4ML SYRINGE (J1650 PER 10MG) SC SCH (09:00)
[2021-02-13] MEDS: OMEPRAZOLE 20 MG CAP PO SCH (09:41)
[2021-02-13] MEDS: ASPIRIN 81MG ENTERIC TABLET PO SCH (09:42)
[2021-02-13] MEDS: lisinopriL 40 MG TAB PO SCH (09:42)
[2021-02-13 12:00] VITALS: BP 143/60
--- NOTE | 2021-02-13 14:27 | IPNPDOC ---
Text Note Date of Service The patient was seen on 02/13/21. NOTE Subjective: No any acute events overnight. Patient denied any chest pain or pa lpitations Objective: GENERAL APPEARANCE: NAD HEENT: no scleral icterus, no JVD, EOMI CARDIOVASCULAR: S1S2 LUNGS: CTA ABDOMEN: soft & not tender w palpitation MUSCULOSKELETAL: no cyanosis, no swelling INTEGUMENT: no generalized pallor NEUROLOGICAL: cranial nerve function from 2-12 intact intact, follows commands, speech not dysarthric Assessment/Plan Patient is 80 years old female with past medical history of coronary artery diseases, [place] with stents placement, hypothyroidism presented to the hospital with generalized weakness. Patient stated that for past 2 weeks she has been having increased generalized weakness and lightheadedness. Yesterday she reported that she fell down on her knee because of lightheadedness. She denied any head trauma or injury. She didn't lose her consciousness. Yesterday night patient had some chest tightness palpitations resolved after few hours. In ER patient was found to have systolic blood pressure of 180, no leukocytosis, potassium 5.4, negative troponin. EKG did not show any acute ischemic changes. Head CT negative for trauma or acute stroke. Chest x-ray negative for acute pulmonary diseases. Problems (1) Hypertensive urgency/hypertension Blood pressures under control Lisinopril 40 mg amlodipine 10 mg (2) Hyperkalemia resolved (3) Chest pain Most likely musculoskeletal Troponin negative EKG negative, EKG didn't show any acute ischemic changes Continue home meds Currently resolved (4) Generalized weakness PT/OT (5) Coronary artery disease Continue home meds VS,Fishbone, I+O VS, Fishbone, I+O Laboratory Tests 02/13/21 05:49 Vital Signs Date Time Temp Pulse Resp B/P (MAP) Pulse Ox O2 Delivery O2 Flow Rate FiO2 02/13/21 12:00 98.0 58 18 143/60 (87) 98 Room Air I&O- Last 24 Hours up to 6 AM 02/13/21 06:00 Intake Total 480 ml Output Total 400 ml Balance 80 ml KATIE CALDERÓN DO February 13, 2021 14:27
[2021-02-13 16:00] VITALS: BP 127/60
[2021-02-13 20:00] VITALS: BP 133/60
[2021-02-13] MEDS: ATORVASTATIN 20 MG TAB PO SCH (20:53)
[2021-02-13] MEDS: LATANOPROST 0.005% OPHTH SOLN 2.5 ML OU SCH (20:54)
[2021-02-14] MEDS: ALPRAZolam 0.5 MG TAB PO PRN ×2 (00:33→08:42)
[2021-02-14 05:23] LABS: BASO # 0.1 10^3/uL (0.0-0.2); BASO % 1.4 % (0.0-1.0); EOS # 0.4 10^3/uL (0.0-0.5); EOS % 6.1 % (0.0-3.0); HEMATOCRIT 36.3 % (36.0-47.0); HEMOGLOBIN 11.7 g/dl (12.0-15.5); LYMPH # 1.4 10^3/uL (1.5-5.0); LYMPH % 22.7 % (24.0-44.0); MEAN CORPUSCULAR HEMOGLOBIN 28.7 pg (27.0-33.0); MEAN CORPUSCULAR HGB CONC 32.2 g/dl (32.0-36.5); MEAN CORPUSCULAR VOLUME 89.2 fl (80.0-96.0); MONO # 0.6 10^3/uL (0.0-0.8); MONO % 8.9 % (2.0-8.0); NEUTROPHILS # 3.7 10^3/uL (1.5-8.5); NEUTROPHILS % 59.8 % (36.0-66.0); PLATELET COUNT, AUTOMATED 217 10^3/uL (150-450); RED BLOOD COUNT 4.07 10^6/uL (4.00-5.40); WHITE BLOOD COUNT 6.3 10^3/uL (4.0-10.0)
[2021-02-14] MEDS: LEVOTHYROXINE 50MCG TABLET (0.05MG) PO SCH (05:50)
[2021-02-14 05:55] LABS: ALBUMIN 3.5 GM/DL (3.2-5.2); BILIRUBIN,TOTAL 0.7 MG/DL (0.2-1.0); CREATININE FOR GFR 1.05 MG/DL (0.55-1.30); GLOMERULAR FILTRATION RATE 53.4 (>32); MAGNESIUM LEVEL 2.3 MG/DL (1.8-2.4); POTASSIUM SERUM 3.9 MEQ/L (3.5-5.1); TOTAL PROTEIN 5.9 GM/DL (6.4-8.2)
[2021-02-14 08:00] VITALS: BP 178/58
[2021-02-14] MEDS: ENOXAPARIN 40MG/0.4ML SYRINGE (J1650 PER 10MG) SC SCH (08:41)
[2021-02-14] MEDS: ASPIRIN 81MG ENTERIC TABLET PO SCH (08:42)
[2021-02-14] MEDS: lisinopriL 40 MG TAB PO SCH (08:42)
[2021-02-14] MEDS: OMEPRAZOLE 20 MG CAP PO SCH (08:42)
[2021-02-14 08:43] VITALS: BP 178/58
[2021-02-14] MEDS ORDERED: AMLO1TAB25 PO (09:03)
[2021-02-14] MEDS ORDERED: LISI40TA4 PO (09:03)
[2021-02-14] MEDS ORDERED: PACE200T PO (10:04)
--- NOTE | 2021-02-14 11:31 | DS.PDOC ---
Discharge Summary General Date of Admission February 12, 2021 at 13:43 Date of Discharge 02/14/21 Discharge Summary PROCEDURES PERFORMED DURING STAY: [None]. ADMITTING DIAGNOSES: Hypertensive urgency/hypertension Hyperkalemia Chest pain Generalized weakness Coronary artery disease DISCHARGE DIAGNOSES: Hypertensive urgency/hypertension Hyperkalemia Chest pain Generalized weakness Coronary artery disease COMPLICATIONS/CHIEF COMPLAINT: Generalized Weakness, Hyperkalemia. HISTORY OF PRESENT ILLNESS: Patient is 80 years old female with past medical history of coronary artery diseases, CA with stents placement, hypothyroidism presented to the hospital with generalized weakness. Patient stated that for past 2 weeks she has been having increased generalized weakness and lightheadedness. Yesterday she reported that she fell down on her knee because of lightheadedness. She denied any head trauma or injury. She didn't lose her consciousness. Yesterday night patient had some chest tightness palpitations resolved after few hours. In ER patient was found to have systolic blood pressure of 180, no leukocytosis, potassium 5.4, negative troponin. EKG did not show any acute ischemic changes. Head CT negative for trauma or acute stroke. Chest x-ray negative for acute pulmonary diseases. HOSPITAL COURSE: During hospital stay the following issues addressed (1) Hypertensive urgency/hypertension Blood pressures under control Lisinopril 40 mg amlodipine 10 mg (2) Hyperkalemia resolved (3) Chest pain Most likely musculoskeletal Troponin negative EKG negative, EKG didn't show any acute ischemic changes Continue home meds Currently resolved (4) Generalized weakness PT/OT (5) Coronary artery disease Continue home meds DISCHARGE MEDICATIONS: Please see below. ALLERGIES: Please see below. PHYSICAL EXAMINATION ON DISCHARGE: VITAL SIGNS: Please see below. GENERAL APPEARANCE: NAD HEENT: no scleral icterus, no JVD, EOMI CARDIOVASCULAR: S1S2 LUNGS: CTA ABDOMEN: soft & not tender w palpitation MUSCULOSKELETAL: no cyanosis, no swelling INTEGUMENT: no generalized pallor NEUROLOGICAL: cranial nerve function from 2-12 intact intact, follows commands, speech not dysarthric LABORATORY DATA: Please see below. PROGNOSIS: Fair ACTIVITY: [As tolerated]. DIET: Cardiac DISPOSITION: Home ITEMS TO FOLLOWUP ON ON OUTPATIENT: Follow-up with administrative supervisor and PCP DISCHARGE CONDITION: [Stable]. TIME SPENT ON DISCHARGE: 40 minutes. Vital Signs/I&Os Vital Signs Date Time Temp Pulse Resp B/P (MAP) Pulse Ox O2 Delivery O2 Flow Rate FiO2 5/7/21 08:43 60 178/58 02/14/21 08:00 97.7 19 100 Room Air I&O- Last 24 Hours up to 6 AM 02/14/21 06:00 Intake Total 900 ml Output Total 1425 ml Balance -525 ml Laboratory Data Labs 24H Laboratory Tests 2 02/14/21 05:05: Immature Granulocyte % (Auto) 1.1, Neutrophils (%) (Auto) 59.8, Lymphocytes (%) (Auto) 22.7L, Monocytes (%) (Auto) 8.9H, Eosinophils (%) (Auto) 6.1H, Basophils (%) (Auto) 1.4H, Neutrophils # (Auto) 3.7, Lymphocytes # (Auto) 1.4L, Monocytes # (Auto) 0.6, Eosinophils # (Auto) 0.4, Basophils # (Auto) 0.1, Nucleated Red Blood Cells % (auto) 0.0, Anion Gap 6L, Glomerular Filtration Rate 53.4, Calcium Level 9.0, Magnesium Level 2.3, Total Bilirubin 0.7, Aspartate Amino Transf (AST/SGOT) 13, Alanine Aminotransferase (ALT/SGPT) 16, Alkaline Phosphatase 74, Total Protein 5.9L, Albumin 3.5, Albumin/Globulin Ratio 1.5 CBC/BMP Laboratory Tests 02/14/21 05:05 Discharge Medications Scheduled Amiodarone Hcl (Pacerone) 200 Mg Tab, 100 MG PO DAILY Amlodipine Besylate (Amlodipine Besylate) 10 Mg Tablet, 10 MG PO DAILY Aspirin (Aspirin EC) 81 Mg Tablet.dr, 81 MG PO DAILY, (Reported) Atorvastatin Calcium (Atorvastatin Calcium) 20 Mg Tab, 20 MG PO QHS, (Reported) Cholecalciferol (Vitamin D3) (Vitamin D3) 50 Mcg Tablet, 50 MCG PO QHS, (Reported) Cranberry Fruit Extract (Cranberry) 500 Mg Capsule, 500 MG PO QHS, (Reported) Latanoprost (Xalatan) 0.005% 2.5ML Drops, 1 DROP OU QHS, (Reported) Levothyroxine Sodium (Levothyroxine Sodium) 50 Mcg Tab, 50 MCG PO DAILY, (Reported) Lisinopril (Lisinopril) 40 Mg Tablet, 40 MG PO DAILY Omeprazole (Omeprazole) 40 Mg Capsule.dr, 40 MG PO DAILY, (Reported) Ubidecarenone (Coenzyme Q10) 200 Mg Cap, 200 MG PO DAILY, (Reported) Scheduled PRN Alprazolam (Xanax) 0.5 Mg Tab, 0.5 MG PO BID PRN for ANXIETY, (Reported) Nitroglycerin (Nitroglycerin) 0.4 Mg Tab.subl, 0.4 MG SL NITRO PRN for CHEST PAIN, (Reported) Allergies Coded Allergies: Sulfa (Sulfonamide Antibiotics) (Verified Allergy, Intermediate, swelling, 02/11/21) chlorpheniramine (Verified Allergy, Unknown, 02/11/21) propoxyphene (Verified Allergy, Unknown, 02/11/21) Quinolones (Verified Adverse Reaction, Intermediate, palpitations, 02/11/21) Yhklnjp-Qwy-Osx Reductase Inhibitor (Verified Adverse Reaction, Intermediate, MUSCLE WEAKNESS, 02/11/21) ciprofloxacin (Verified Adverse Reaction, Intermediate, makes me act funny, 02/11/21) metoprolol (Verified Adverse Reaction, Intermediate, bradycardia, 02/11/21) prednisone (Verified Adverse Reaction, Intermediate, 02/11/21) Delrium cephalexin (Verified Adverse Reaction, Unknown, 02/11/21) KATIE CALDERÓN DO February 14, 2021 11:30
[2021-02-14 12:00] VITALS: BP 146/62
[2021-02-14] MEDS ORDERED: AMIODARONE 100MG TABLET (PACERONE) PO SCH (12:00)
== END 2021-02-14 11:57 | disposition home or self-care (01) | DRG 305 ==
LOC: M ED 13:10 → M ED INP 17:20 → ENRESERV 02-11 19:05 → M PCU 02-11 20:42 → OBSVTOIN 02-12 13:43
PROVIDERS: ADMIT Internal Medicine; ATTEND Internal Medicine
DX: I16.0 Hypertensive urgency (principal); I25.10 Atherosclerotic heart disease of native coronary artery without angina pectoris; I25.2 Old myocardial infarction; E03.9 Hypothyroidism, unspecified; R07.9 Chest pain, unspecified; R53.1 Weakness; E87.5 Hyperkalemia; Z79.82 Long term (current) use of aspirin; Z79.899 Other long term (current) drug therapy; Z88.1 Allergy status to other antibiotic agents; Z88.2 Allergy status to sulfonamides; Z88.8 Allergy status to other drugs, medicaments and biological substances; Z87.891 Personal history of nicotine dependence; Z20.822 Contact with and (suspected) exposure to COVID-19; I10 Essential (primary) hypertension; Z95.5 Presence of coronary angioplasty implant and graft

== ENCOUNTER → 2021-03-06 | Outpatient (CLI) | payer MEDICARE ==
[~2021-03-06] MED LIST changes: +AMLO1TAB25 PO; +ASPI81TA26 PO; +CVS500CA5 PO; +LISI40TA4 PO; +NITR0.4S14 SL; +OMEP-221 PO; +TRAN1TAB56 PO; +VITA200015 PO; +XALA0.007 OU
[2021-03-06 15:35] LABS: CALCIUM LEVEL 9.7 MG/DL (8.8-10.2); CREATININE FOR GFR 1.43 MG/DL (0.55-1.30); GLOMERULAR FILTRATION RATE 37.4 (>32); MAGNESIUM LEVEL 2.2 MG/DL (1.8-2.4); POTASSIUM SERUM 3.8 MEQ/L (3.5-5.1)
== END ==
LOC: M LAB 14:30
PROVIDERS: ATTEND Physician Assistant
DX: I10 Essential (primary) hypertension (principal); I48.0 Paroxysmal atrial fibrillation

== ENCOUNTER 2021-05-07 09:48 | Emergency (ER) | payer MEDICARE ==
[~2021-05-07] VITALS: Ht 167.6 cm; Wt 57.3 kg
[~2021-05-07 09:48] MED LIST changes: +OMEP40CA4; -OMEP40CA97
[2021-05-07] MEDS ORDERED: ASPIRIN 81 MG CHEW TABLET PO ONE (10:30)
--- NOTE | 2021-05-07 10:41 | REP ---
INDICATION: CHEST PAIN. COMPARISON: 02/10/2021 also portable TECHNIQUE: Portable FINDINGS: The technique utilized in obtaining the radiograph has magnified the cardiac silhouette and accentuated the interstitial markings. The superior mediastinal structures are midline. The cardiac silhouette is unremarkable in size, shape, and position. The diaphragmatic surfaces of the lungs are regular, and the costophrenic angles are clear. The pulmonary [place] are clear. The imaged osseous structures are intact. IMPRESSION: There is no acute cardiopulmonary disease. No significant change from the prior exam <Electronically signed by Asad Reeves > 05/07/21 1037
[2021-05-07 10:46] LABS: BASO # 0.1 10^3/uL (0.0-0.2); EOS # 0.1 10^3/uL (0.0-0.5); EOS % 0.9 % (0.0-3.0); HEMATOCRIT 36.5 % (36.0-47.0); HEMOGLOBIN 12.6 g/dl (12.0-15.5); LYMPH # 0.6 10^3/uL (1.5-5.0); LYMPH % 8.2 % (24.0-44.0); MEAN CORPUSCULAR HEMOGLOBIN 29.3 pg (27.0-33.0); MEAN CORPUSCULAR HGB CONC 34.5 g/dl (32.0-36.5); MEAN CORPUSCULAR VOLUME 84.9 fl (80.0-96.0); MONO # 0.6 10^3/uL (0.0-0.8); MONO % 7.6 % (2.0-8.0); NEUTROPHILS # 6.3 10^3/uL (1.5-8.5); NEUTROPHILS % 81.3 % (36.0-66.0); PLATELET COUNT, AUTOMATED 230 10^3/uL (150-450); WHITE BLOOD COUNT 7.7 10^3/uL (4.0-10.0)
[2021-05-07 11:12] LABS: ALT/SGPT 23 U/L (12-78); BILIRUBIN,DIRECT 0.2 MG/DL (0.0-0.2); BILIRUBIN,TOTAL 0.6 MG/DL (0.2-1.0); BLOOD UREA NITROGEN 20 MG/DL (7-18); CARBON DIOXIDE LEVEL 26 MEQ/L (21-32); CHLORIDE LEVEL 98 MEQ/L (98-107); CPK CREATINE PHOSPHOKINASE 92 U/L (26-192); CREATININE FOR GFR 1.16 MG/DL (0.55-1.30); GLOMERULAR FILTRATION RATE 47.6 (>32); GLUCOSE, FASTING 115 MG/DL (70-100); LIPASE 290 U/L (73-393); MB/CK RELATIVE INDEX 2.17 (< OR =4); POTASSIUM SERUM 3.5 MEQ/L (3.5-5.1); SODIUM LEVEL 132 MEQ/L (136-145); TOTAL PROTEIN 6.6 GM/DL (6.4-8.2); TROPONIN I < 0.02 NG/ML (< 0.10)
[2021-05-07] MEDS ORDERED: GI COCKTAIL 50ML BTL(HYOSCYAMINE/MAALOX/LIDOCAINE VISCOUS)(1:3:1) PO ONE (11:25)
[2021-05-07 13:15] LABS: CPK CREATINE PHOSPHOKINASE 84 U/L (26-192); MB/CK RELATIVE INDEX 2.38 (< OR =4); TROPONIN I < 0.02 NG/ML (< 0.10)
[2021-05-07 17:14] LABS: CK-MB VALUE MASS 1.5 NG/ML (<3.6); CPK CREATINE PHOSPHOKINASE 79 U/L (26-192); TROPONIN I < 0.02 NG/ML (< 0.10)
[2021-05-07] MEDS ORDERED: PANTOPRAZOLE 40MG VIAL (C9113 PER 1) IV ONE (17:40)
[2021-05-07 17:50] VITALS: BP 192/70
--- NOTE | 2021-05-08 07:33 | ECGEPIP ---
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
--- NOTE | 2021-05-08 07:39 | ECGEPIP ---
[facility] - ED Test Date: 2021-05-07 Pat Name: ALICE GAMINO Department: Room: - Gender: Female Cab Driver: ÁNGELA : 1940 Requested By: Pako Cortes Order Number: [id number] Reading MD: Pako Almendarez Measurements Intervals [place] Rate: 56 P: 67 [place]: 182 QRS: 73 QRSD: 94 T: 53 QT: 496 QTc: 478 Interpretive Statements Sinus bradycardia POSSIBLE PRIOR INFERIOR INFARCT POOR R WAVE PROGRESSION SIMILAR TO PRIOR ON SAME DATE Electronically Signed on 05-08-2021 7:39:01 EDT by Pako Almendarez
--- NOTE | 2021-05-08 07:43 | ECGEPIP ---
[facility] - ED Test Date: 2021-05-07 Pat Name: ALICE GAMINO Department: Room: - Gender: Female Lofter: ÁNGELA : 1940 Requested By: Pako Cortes Order Number: [id number] Reading MD: Pako Almendarez Measurements Intervals [place] Rate: 59 P: 66 [place]: 166 QRS: 72 QRSD: 94 T: 48 QT: 502 QTc: 496 Interpretive Statements Sinus bradycardia POSSIBLE PRIOR INFERIOR INFARCT POOR R WAVE PROGRESSION Prolonged QT SIMILAR TO PRIOR ON SAME DATE Electronically Signed on 05-08-2021 7:43:41 EDT by Pako Almendarez
== END 2021-05-07 18:39 | disposition home or self-care (01) ==
LOC: M ED 09:48
DX: R00.1 Bradycardia, unspecified (principal); K21.00 Gastro-esophageal reflux disease with esophagitis, without bleeding; I10 Essential (primary) hypertension; R07.89 Other chest pain; I48.91 Unspecified atrial fibrillation; I25.10 Atherosclerotic heart disease of native coronary artery without angina pectoris; I25.2 Old myocardial infarction; E78.5 Hyperlipidemia, unspecified; Z87.891 Personal history of nicotine dependence; Z95.5 Presence of coronary angioplasty implant and graft; Z79.899 Other long term (current) drug therapy; Z88.2 Allergy status to sulfonamides; Z88.1 Allergy status to other antibiotic agents; Z88.8 Allergy status to other drugs, medicaments and biological substances
CPT/HCPCS: 71045; 80048; 80076; 82550; 82553; 83690; 84484; 85025; 93005; 93041; 94760; 96374; 99285; C9113

== ENCOUNTER → 2021-07-01 | Outpatient (CLI) | payer MEDICARE ==
[2021-07-01 16:27] LABS: CALCIUM LEVEL 9.1 MG/DL (8.8-10.2); CREATININE FOR GFR 1.09 MG/DL (0.55-1.30); GLOMERULAR FILTRATION RATE 51.2 (>32); POTASSIUM SERUM 4.4 MEQ/L (3.5-5.1)
== END ==
LOC: M LAB 14:48
PROVIDERS: ATTEND Physician Assistant
DX: I10 Essential (primary) hypertension (principal)

== ENCOUNTER → 2021-08-21 | Outpatient (REF) | payer MEDICARE ==
[2021-08-21 16:24] LABS: HEMATOCRIT 35.3 % (36.0-47.0); HEMOGLOBIN 11.5 g/dl (12.0-15.5); MEAN CORPUSCULAR HEMOGLOBIN 28.9 pg (27.0-33.0); MEAN CORPUSCULAR HGB CONC 32.6 g/dl (32.0-36.5); MEAN CORPUSCULAR VOLUME 88.7 fl (80.0-96.0); PLATELET COUNT, AUTOMATED 250 10^3/uL (150-450); RED BLOOD COUNT 3.98 10^6/uL (4.00-5.40); WHITE BLOOD COUNT 7.2 10^3/uL (4.0-10.0)
[2021-08-21 17:11] LABS: ALBUMIN 3.7 GM/DL (3.2-5.2); BILIRUBIN,TOTAL 0.6 MG/DL (0.2-1.0); CALCIUM LEVEL 9.1 MG/DL (8.8-10.2); CHOLESTEROL RISK RATIO 2.365 (<5); CREATININE FOR GFR 1.32 MG/DL (0.55-1.30); FREE T4 1.39 NG/DL (0.76-1.46); POTASSIUM SERUM 4.6 MEQ/L (3.5-5.1); THYROID STIMULATING HORMONE 3.01 uIU/ML (0.358-3.740); TOTAL PROTEIN 6.6 GM/DL (6.4-8.2)
== END ==
LOC: M SFHCADAM 13:17
PROVIDERS: ATTEND Family Medicine
DX: L74.9 Eccrine sweat disorder, unspecified (principal); E78.2 Mixed hyperlipidemia; D63.1 Anemia in chronic kidney disease; D50.9 Iron deficiency anemia, unspecified; N18.9 Chronic kidney disease, unspecified

== ENCOUNTER → 2022-02-16 | Outpatient (REF) | payer MEDICARE ==
[~2022-02-16] MED LIST changes: -OMEP-221 PO; +OMEP40CA5 PO; -VITA200015 PO; +VITA200035 PO
[2022-02-16 16:27] LABS: HEMOGLOBIN 12.3 g/dl (12.0-15.5); MEAN CORPUSCULAR HEMOGLOBIN 28.7 pg (27.0-33.0); MEAN CORPUSCULAR HGB CONC 32.4 g/dl (32.0-36.5); MEAN CORPUSCULAR VOLUME 88.6 fl (80.0-96.0); PLATELET COUNT, AUTOMATED 285 10^3/uL (150-450); RED BLOOD COUNT 4.29 10^6/uL (4.00-5.40)
[2022-02-16 17:03] LABS: ALBUMIN 3.9 GM/DL (3.2-5.2); BILIRUBIN,TOTAL 0.5 MG/DL (0.2-1.0); CALCIUM LEVEL 9.6 MG/DL (8.8-10.2); CHOLESTEROL RISK RATIO 2.322 (<5); CREATININE FOR GFR 1.32 MG/DL (0.55-1.30); FREE T4 1.2 NG/DL (0.76-1.46); GLOMERULAR FILTRATION RATE 40.9 (>32); PERCENT SATURATION 14.1 % (13.2-45.0); THYROID STIMULATING HORMONE 4.62 uIU/ML (0.358-3.740)
== END ==
LOC: M SFHCADAM 15:00
PROVIDERS: ATTEND Family Medicine
DX: I11.9 Hypertensive heart disease without heart failure (principal); D63.1 Anemia in chronic kidney disease; E78.2 Mixed hyperlipidemia; E03.9 Hypothyroidism, unspecified

== ENCOUNTER 2022-05-02 13:40 | Emergency (ER) | payer MEDICARE ==
[~2022-05-02] VITALS: Ht 167.6 cm; Wt 60.5 kg
[2022-05-02 14:05] LABS: BILIRUBIN, URINE MANUAL OBSCURED (NEGATIVE); GLUCOSE, URINE (UA) MANUAL OBSCURED mg/dL (NEGATIVE); KETONE, URINE MANUAL OBSCURED mg/dL (NEGATIVE); UROBILINOGEN, URINE MANUAL OBSCURED mg/dl (NORMAL)
[2022-05-02 14:06] LABS: BACTERIA, URINE MOD AMOUNT; RBC, URINE TNTC /hpf (0-3)
[2022-05-02 14:07] LABS: SQUAMOUS EPITHELIAL CELL URINE NONE SEEN /hpf (SMALL AMT)
[2022-05-02 14:08] LABS: HYALINE CAST, URINE NONE SEEN /lpf (0-1)
[2022-05-02] MEDS ORDERED: NS 500 ML IV ONE (14:35)
[2022-05-02 14:50] LABS: BASO # 0.1 10^3/uL (0.0-0.2); BASO % 0.5 % (0.0-1.0); EOS % 0.2 % (0.0-3.0); HEMATOCRIT 36.9 % (36.0-47.0); HEMOGLOBIN 12.2 g/dl (12.0-15.5); LYMPH # 0.6 10^3/uL (1.5-5.0); LYMPH % 4.7 % (24.0-44.0); MEAN CORPUSCULAR HEMOGLOBIN 27.5 pg (27.0-33.0); MEAN CORPUSCULAR HGB CONC 33.1 g/dl (32.0-36.5); MEAN CORPUSCULAR VOLUME 83.3 fl (80.0-96.0); MONO # 0.9 10^3/uL (0.0-0.8); MONO % 6.6 % (2.0-8.0); NEUTROPHILS # 11.3 10^3/uL (1.5-8.5); NEUTROPHILS % 87.3 % (36.0-66.0); PLATELET COUNT, AUTOMATED 259 10^3/uL (150-450); RED BLOOD COUNT 4.43 10^6/uL (4.00-5.40)
[2022-05-02 14:59] LABS: INR 0.95
[2022-05-02 15:00] LABS: PARTIAL THROMBOPLASTIN TIME 24.5 SECONDS (25.9-37.0)
[2022-05-02 15:14] LABS: CALCIUM LEVEL 9.4 MG/DL (8.8-10.2); CREATININE FOR GFR 1.21 MG/DL (0.55-1.30); GLOMERULAR FILTRATION RATE 45.2 (>32); POTASSIUM SERUM 3.7 MEQ/L (3.5-5.1)
[2022-05-02] MEDS ORDERED: cefTRIAXone SOD 1 GM in D5W MINI-BAG PLUS 50 ML IV ONE (15:40)
[2022-05-02] MEDS ORDERED: CEFD300C41 PO (17:53)
[2022-05-02 18:33] VITALS: BP 176/70
== END 2022-05-02 18:37 | disposition home or self-care (01) ==
LOC: M ED 13:40
DX: N39.0 Urinary tract infection, site not specified (principal); R31.9 Hematuria, unspecified; I70.0 Atherosclerosis of aorta; N20.0 Calculus of kidney; K42.9 Umbilical hernia without obstruction or gangrene; M48.05 Spinal stenosis, thoracolumbar region; Z79.82 Long term (current) use of aspirin; Z79.899 Other long term (current) drug therapy; Z88.2 Allergy status to sulfonamides; Z88.1 Allergy status to other antibiotic agents; Z88.8 Allergy status to other drugs, medicaments and biological substances
CPT/HCPCS: 74176; 80048; 81000; 81015; 85025; 85610; 85730; 86850; 86900; 86901; 87088; 87186; 96361; 96365; 99284; J0696

== ENCOUNTER → 2022-05-14 | Outpatient (REF) | payer MEDICARE ==
[~2022-05-14] MED LIST changes: +CEFD300C41 PO; +INDA1.253 PO; -INDA125TA PO
[2022-05-14 14:04] LABS: HEMATOCRIT 35.5 % (36.0-47.0); HEMOGLOBIN 11.8 g/dl (12.0-15.5); MEAN CORPUSCULAR HEMOGLOBIN 27.4 pg (27.0-33.0); MEAN CORPUSCULAR HGB CONC 33.2 g/dl (32.0-36.5); MEAN CORPUSCULAR VOLUME 82.4 fl (80.0-96.0); PLATELET COUNT, AUTOMATED 259 10^3/uL (150-450); RED BLOOD COUNT 4.31 10^6/uL (4.00-5.40)
[2022-05-14 14:19] LABS: CALCIUM LEVEL 9.5 MG/DL (8.8-10.2); CREATININE FOR GFR 1.22 MG/DL (0.55-1.30); GLOMERULAR FILTRATION RATE 44.8 (>32)
[2022-05-14 16:56] LABS: APPEARANCE, URINE CLEAR (CLEAR); BACTERIA, URINE AUTO NEGATIVE (NEGATIVE); BILIRUBIN, URINE AUTO NEGATIVE (NEGATIVE); BLOOD, URINE BLOOD NEGATIVE (NEGATIVE); COLOR, URINE STRAW (YELLOW); GLUCOSE, URINE (UA) AUTO NEGATIVE (NEGATIVE); KETONE, URINE AUTO NEGATIVE (NEGATIVE); LEUKOCYTE ESTERASE, URINE AUTO NEGATIVE (NEGATIVE); NITRITE, URINE AUTO NEGATIVE (NEGATIVE); PROTEIN, URINE AUTO NEGATIVE (NEGATIVE); RBC, URINE AUTO 1 /HPF (0-3); SPECIFIC GRAVITY URINE AUTO 1.004 (1.002-1.035); SQUAMOUS EPITHELIAL CELL UR AU 0 /HPF (0-6); UROBILINOGEN, URINE AUTO 0.2 mg/dL (0.0-2.0); WBC, URINE AUTO 0 /HPF (0-3)
== END ==
LOC: M SFHCADAM 10:33
PROVIDERS: ATTEND Family Medicine
DX: N39.0 Urinary tract infection, site not specified (principal)

== ENCOUNTER → 2022-07-21 | Outpatient (REF) | payer MEDICARE | LOC: M LAB REF 16:02 | PROVIDERS: ATTEND Surgery | DX: L72.3 Sebaceous cyst (principal) ==

== ENCOUNTER → 2022-08-14 | Outpatient (CLI) | payer MEDICARE | LOC: M ADAMS 10:39 | PROVIDERS: ATTEND Physician Assistant | DX: I48.0 Paroxysmal atrial fibrillation (principal); R26.89 Other abnormalities of gait and mobility; I25.10 Atherosclerotic heart disease of native coronary artery without angina pectoris; E03.9 Hypothyroidism, unspecified; G25.1 Drug-induced tremor; E78.2 Mixed hyperlipidemia ==

== ENCOUNTER → 2022-08-14 | Outpatient (REF) | payer MEDICARE ==
[2022-08-14 13:33] LABS: HEMATOCRIT 36.8 % (36.0-47.0); HEMOGLOBIN 11.5 g/dl (12.0-15.5); MEAN CORPUSCULAR HEMOGLOBIN 27.1 pg (27.0-33.0); MEAN CORPUSCULAR HGB CONC 31.3 g/dl (32.0-36.5); MEAN CORPUSCULAR VOLUME 86.8 fl (80.0-96.0); PLATELET COUNT, AUTOMATED 242 10^3/uL (150-450); RED BLOOD COUNT 4.24 10^6/uL (4.00-5.40); WHITE BLOOD COUNT 5.6 10^3/uL (4.0-10.0)
[2022-08-14 14:29] LABS: ALBUMIN 3.6 GM/DL (3.2-5.2); BILIRUBIN,TOTAL 0.5 MG/DL (0.2-1.0); CALCIUM LEVEL 9.3 MG/DL (8.8-10.2); CHOLESTEROL RISK RATIO 2.022 (<5); CREATININE FOR GFR 1.3 MG/DL (0.55-1.30); FREE T4 1.69 NG/DL (0.76-1.46); GLOMERULAR FILTRATION RATE 41.6 (>32); POTASSIUM SERUM 4.1 MEQ/L (3.5-5.1); THYROID STIMULATING HORMONE 0.263 uIU/ML (0.358-3.740); TOTAL PROTEIN 6.5 GM/DL (6.4-8.2)
== END ==
LOC: M SFHCADAM 10:26
PROVIDERS: ATTEND Family Medicine
DX: R26.89 Other abnormalities of gait and mobility (principal); I25.10 Atherosclerotic heart disease of native coronary artery without angina pectoris; E03.9 Hypothyroidism, unspecified; G25.1 Drug-induced tremor; E78.2 Mixed hyperlipidemia

== ENCOUNTER → 2022-08-14 | Outpatient (CLI) | payer MEDICARE ==
[2022-08-14 13:32] LABS: HEMATOCRIT 36.5 % (36.0-47.0); HEMOGLOBIN 11.5 g/dl (12.0-15.5); MEAN CORPUSCULAR HEMOGLOBIN 27.2 pg (27.0-33.0); MEAN CORPUSCULAR HGB CONC 31.5 g/dl (32.0-36.5); MEAN CORPUSCULAR VOLUME 86.3 fl (80.0-96.0); PLATELET COUNT, AUTOMATED 230 10^3/uL (150-450); RED BLOOD COUNT 4.23 10^6/uL (4.00-5.40); WHITE BLOOD COUNT 5.2 10^3/uL (4.0-10.0)
[2022-08-14 14:29] LABS: ALBUMIN 3.5 GM/DL (3.2-5.2); BILIRUBIN,TOTAL 0.7 MG/DL (0.2-1.0); CALCIUM LEVEL 8.9 MG/DL (8.8-10.2); CREATININE FOR GFR 1.25 MG/DL (0.55-1.30); GLOMERULAR FILTRATION RATE 43.6 (>32); MAGNESIUM LEVEL 2.1 MG/DL (1.8-2.4); POTASSIUM SERUM 4.2 MEQ/L (3.5-5.1); TOTAL PROTEIN 6.4 GM/DL (6.4-8.2)
== END ==
LOC: M LABDRWAD 10:42
PROVIDERS: ATTEND Physician Assistant
DX: I25.10 Atherosclerotic heart disease of native coronary artery without angina pectoris (principal); I48.0 Paroxysmal atrial fibrillation; E78.00 Pure hypercholesterolemia, unspecified

== ENCOUNTER → 2022-09-02 | Outpatient (CLI) | payer MEDICARE ==
[~2022-09-02] MED LIST changes: +PROHANCE 279.3MG/ML 5ML VIAL As Ordered ONE
== END ==
LOC: M RAD 13:29
PROVIDERS: ATTEND Family Medicine
DX: H81.23 Vestibular neuronitis, bilateral (principal); G93.89 Other specified disorders of brain
CPT/HCPCS: 70553; A9576

== ENCOUNTER → 2022-10-13 | Outpatient (REF) | payer MEDICARE ==
[~2022-10-13] MED LIST changes: -PROHANCE 279.3MG/ML 5ML VIAL As Ordered ONE
[2022-10-13 16:16] LABS: APPEARANCE, URINE MANUAL HAZY (CLEAR); BILIRUBIN, URINE MANUAL NEGATIVE (NEGATIVE); BLOOD URINE MANUAL TRACE (NEGATIVE); COLOR, URINE MANUAL COLORLESS (YELLOW); GLUCOSE, URINE (UA) MANUAL NEGATIVE (NEGATIVE); KETONE, URINE MANUAL NEGATIVE (NEGATIVE); LEUKOCYTE ESTERASE, URINE MAN POSITIVE (NEGATIVE); NITRITE, URINE MANUAL NEGATIVE (NEGATIVE); PROTEIN, URINE MANUAL NEGATIVE (NEGATIVE); UROBILINOGEN, URINE MANUAL NORMAL (NORMAL)
[2022-10-13 17:44] LABS: BACTERIA, URINE LARGE AMOUNT; RBC, URINE 0-1 /hpf (0-3); SQUAMOUS EPITHELIAL CELL URINE SMALL AMOUNT /hpf (SMALL AMT); WBC, URINE 15-20 /hpf (0-3)
== END ==
LOC: M SFHCADAM 12:02
PROVIDERS: ATTEND Family Medicine
DX: N39.0 Urinary tract infection, site not specified (principal)

== ENCOUNTER → 2022-11-23 | Outpatient (REF) | payer MEDICARE ==
[2022-11-23 15:46] LABS: THYROID STIMULATING HORMONE 2.795 uIU/ML (0.55-4.78)
[2022-11-23 15:48] LABS: FREE T4 1.65 NG/DL (0.89-1.76)
== END ==
LOC: M SFHCADAM 13:41
PROVIDERS: ATTEND Physician Assistant
DX: E03.9 Hypothyroidism, unspecified (principal)

== ENCOUNTER → 2023-01-12 | Outpatient (CLI) | payer MEDICARE ==
[2023-01-12 14:47] LABS: HEMATOCRIT 38.7 % (36.0-47.0); HEMOGLOBIN 12.6 g/dl (12.0-15.5); MEAN CORPUSCULAR HEMOGLOBIN 27.5 pg (27.0-33.0); MEAN CORPUSCULAR HGB CONC 32.6 g/dl (32.0-36.5); MEAN CORPUSCULAR VOLUME 84.5 fl (80.0-96.0); PLATELET COUNT, AUTOMATED 255 10^3/uL (150-450); RED BLOOD COUNT 4.58 10^6/uL (4.00-5.40)
[2023-01-12 15:16] LABS: ALBUMIN 4.1 G/DL (3.2-5.2); BILIRUBIN,TOTAL 0.7 MG/DL (0.3-1.2); CALCIUM LEVEL 9.3 MG/DL (8.3-10.6); CREATININE FOR GFR 1.09 MG/DL (0.55-1.30); GLOMERULAR FILTRATION RATE 50.9 (>32); POTASSIUM SERUM 3.6 MMOL/L (3.5-5.1); TOTAL PROTEIN 6.8 G/DL (5.7-8.2)
== END ==
LOC: M RAD 14:08
PROVIDERS: ATTEND Physician Assistant
DX: I48.0 Paroxysmal atrial fibrillation (principal); M41.85 Other forms of scoliosis, thoracolumbar region

== ENCOUNTER → 2023-02-03 | Outpatient (REF) | payer MEDICARE ==
[~2023-02-03] MED LIST changes: +ALPR0.5T3 PO; +AMIO200T49 PO; +ASPI81CH33 PO; +TOBRSUS8 OD
[2023-02-03 17:29] LABS: THYROID STIMULATING HORMONE 2.925 uIU/ML (0.55-4.78)
[2023-02-03 17:30] LABS: FREE T4 1.55 NG/DL (0.89-1.76)
== END ==
LOC: M SFHCADAM 13:29
PROVIDERS: ATTEND Family Medicine
DX: E03.9 Hypothyroidism, unspecified (principal)

== ENCOUNTER 2023-02-09 10:46 | Inpatient (IN) | payer MEDICARE ==
[~2023-02-09] VITALS: Ht 167.6 cm; Wt 54.8 kg
[~2023-02-09 10:46] MED LIST changes: -ALPR0.5T3 PO; -AMIO200T49 PO; -ASPI81CH33 PO; -TOBRSUS8 OD
[2023-02-09 11:28] LABS: BASO % 0.4 % (0.0-1.0); EOS % 0.5 % (0.0-3.0); HEMATOCRIT 35.5 % (36.0-47.0); HEMOGLOBIN 12.1 g/dl (12.0-15.5); LYMPH # 0.7 10^3/uL (1.5-5.0); MEAN CORPUSCULAR HEMOGLOBIN 27.7 pg (27.0-33.0); MEAN CORPUSCULAR HGB CONC 34.1 g/dl (32.0-36.5); MEAN CORPUSCULAR VOLUME 81.2 fl (80.0-96.0); MONO # 0.6 10^3/uL (0.0-0.8); MONO % 7.6 % (2.0-8.0); NEUTROPHILS % 82.7 % (36.0-66.0); PLATELET COUNT, AUTOMATED 225 10^3/uL (150-450); RED BLOOD COUNT 4.37 10^6/uL (4.00-5.40); WHITE BLOOD COUNT 8.5 10^3/uL (4.0-10.0)
[2023-02-09 11:47] LABS: LIPASE 58 U/L (12-53)
[2023-02-09 11:49] LABS: ALBUMIN 3.9 G/DL (3.2-5.2); ALKALINE PHOSPHATASE 76 U/L (46-116); ALT/SGPT 24 U/L (7.0-40); AST/SGOT 19 U/L (<34); BILIRUBIN,DIRECT 0.3 MG/DL (<0.4); BILIRUBIN,TOTAL 1.2 MG/DL (0.3-1.2); BLOOD UREA NITROGEN 15 MG/DL (9-23); CALCIUM LEVEL 8.5 MG/DL (8.3-10.6); CARBON DIOXIDE LEVEL 25 MMOL/L (20-31); CHLORIDE LEVEL 88 MMOL/L (98-107); CREATININE FOR GFR 0.87 MG/DL (0.55-1.30); GLOMERULAR FILTRATION RATE > 60.0 (>32); GLUCOSE, FASTING 121 MG/DL (74-106); POTASSIUM SERUM 3.8 MMOL/L (3.5-5.1); SODIUM LEVEL 123 MMOL/L (136-145); TOTAL PROTEIN 6.2 G/DL (5.7-8.2)
[2023-02-09 11:51] LABS: FREE T4 1.62 NG/DL (0.89-1.76)
[2023-02-09 11:52] LABS: CPK CREATINE PHOSPHOKINASE 113 U/L (34-145); MB/CK RELATIVE INDEX 1.76 (< OR =4); THYROID STIMULATING HORMONE 3.454 uIU/ML (0.55-4.78)
[2023-02-09] MEDS ORDERED: hydrALAZINE 20MG/ML 1ML VIAL IV STA ×2 (12:25→13:17)
[2023-02-09] MEDS ORDERED: ONDANSETRON 4MG 2ML VIAL IV ONE (12:35)
[2023-02-09] MEDS ORDERED: NS 1,000 ML IV SCH (12:35)
[2023-02-09 12:50] LABS: CK-MB VALUE MASS 1.6 NG/ML (<3.6)
[2023-02-09 12:55] LABS: MB/CK RELATIVE INDEX 1.45 (< OR =4)
[2023-02-09] MEDS ORDERED: ISOVUE-370 76% 100ML VIAL As Ordered ONE (13:01)
[2023-02-09 13:05] LABS: RSV AMPLIFICATION NEGATIVE (NEGATIVE)
[2023-02-09 13:17] VITALS: BP 225/95
[2023-02-09] MEDS ORDERED: AMIODARONE 200 MG TAB (PACERONE) PO ONE (14:10)
[2023-02-09] MEDS ORDERED: ALPRAZolam 0.5 MG TAB PO ONE (14:50)
[2023-02-09] MEDS ORDERED: ONDANSETRON 4MG 2ML VIAL IV PRN (15:20)
[2023-02-09] MEDS ORDERED: PANTOPRAZOLE 40MG VIAL IV ONE (15:20)
[2023-02-09] MEDS ORDERED: ASPI81CH33 PO (15:43)
[2023-02-09] MEDS ORDERED: INDA1.253 PO (15:43)
[2023-02-09] MEDS ORDERED: TOBRSUS8 OD (15:43)
[2023-02-09] MEDS ORDERED: ALPR0.5T3 PO (15:43)
[2023-02-09] MEDS ORDERED: AMIO200T49 PO (15:43)
[2023-02-09] MEDS ORDERED: HOME MED LIST COMPLETE! XX SCH (15:45)
[2023-02-09 17:04] VITALS: BP 158/44
[2023-02-09 17:23] VITALS: BP 160/58
[2023-02-09 17:35] LABS: SODIUM,RANDOM URINE 72 MMOL/L
[2023-02-09 17:39] LABS: OSMOLALITY URINE 296 MOSM/KG (50-1400)
[2023-02-09 19:30] LABS: CALCIUM LEVEL 8.6 MG/DL (8.3-10.6); GLOMERULAR FILTRATION RATE 56.2 (>32); POTASSIUM SERUM 3.2 MMOL/L (3.5-5.1)
[2023-02-09 19:51] VITALS: BP 153/71
[2023-02-09] MEDS: ALPRAZolam 0.5 MG TAB PO SCH (20:37)
[2023-02-09] MEDS: SENNA 8.6 MG TAB (SENOKOT) PO SCH (20:37)
[2023-02-09] MEDS: DOCUSATE SODIUM 100MG CAPSULE PO SCH (20:37)
[2023-02-09] MEDS: ATORVASTATIN 20 MG TAB PO SCH (20:37)
[2023-02-09] MEDS: TOBRADEX OPHTH SUSP 2.5 ML OD SCH (20:38)
[2023-02-09] MEDS: LATANOPROST 0.005% OPHTH SOLN 2.5 ML OU SCH (20:38)
[2023-02-09 23:45] LABS: CALCIUM LEVEL 7.9 MG/DL (8.3-10.6); CREATININE FOR GFR 1.09 MG/DL (0.55-1.30); GLOMERULAR FILTRATION RATE 50.9 (>32); POTASSIUM SERUM 3.5 MMOL/L (3.5-5.1)
[2023-02-10] VITALS (9 sets, daily range): BP systolic 90–162; BP diastolic 38–63
[2023-02-10 05:21] LABS: BASO # 0.1 10^3/uL (0.0-0.2); BASO % 0.7 % (0.0-1.0); EOS # 0.3 10^3/uL (0.0-0.5); EOS % 3.3 % (0.0-3.0); HEMATOCRIT 32.6 % (36.0-47.0); HEMOGLOBIN 11.1 g/dl (12.0-15.5); LYMPH # 1.2 10^3/uL (1.5-5.0); LYMPH % 15.5 % (24.0-44.0); MEAN CORPUSCULAR HEMOGLOBIN 27.6 pg (27.0-33.0); MEAN CORPUSCULAR VOLUME 81.1 fl (80.0-96.0); NEUTROPHILS % 66.6 % (36.0-66.0); PLATELET COUNT, AUTOMATED 212 10^3/uL (150-450); RED BLOOD COUNT 4.02 10^6/uL (4.00-5.40); WHITE BLOOD COUNT 7.6 10^3/uL (4.0-10.0)
[2023-02-10 05:49] LABS: CALCIUM LEVEL 8.1 MG/DL (8.3-10.6); CREATININE FOR GFR 1.18 MG/DL (0.55-1.30); GLOMERULAR FILTRATION RATE 46.5 (>32); POTASSIUM SERUM 3.6 MMOL/L (3.5-5.1)
[2023-02-10] MEDS: LEVOTHYROXINE 50MCG TABLET (0.05MG) PO SCH (05:53)
[2023-02-10] MEDS ORDERED: TAMSULOSIN 0.4 MG CAP PO SCH (09:00)
[2023-02-10] MEDS: DOCUSATE SODIUM 100MG CAPSULE PO SCH ×2 (09:17→21:42)
[2023-02-10] MEDS: ASPIRIN 81MG CHEW TABLET PO SCH (09:17)
[2023-02-10] MEDS: AMIODARONE 100MG TABLET (PACERONE) PO SCH (09:17)
[2023-02-10] MEDS: ALPRAZolam 0.5 MG TAB PO SCH ×2 (09:17→21:41)
[2023-02-10] MEDS: TOBRADEX OPHTH SUSP 2.5 ML OD SCH ×4 (09:18→21:42)
[2023-02-10] MEDS: PANTOPRAZOLE 40MG VIAL IV SCH (09:18)
[2023-02-10 11:48] LABS: CALCIUM LEVEL 8.3 MG/DL (8.3-10.6); CREATININE FOR GFR 1.24 MG/DL (0.55-1.30); GLOMERULAR FILTRATION RATE 43.9 (>32); POTASSIUM SERUM 3.5 MMOL/L (3.5-5.1)
[2023-02-10] MEDS: FUROSEMIDE 20 MG TAB PO ONE ×2 (14:20→18:17)
[2023-02-10] MEDS: SODIUM CHLORIDE 1 GM TAB PO SCH ×2 (15:25→21:41)
[2023-02-10 18:17] LABS: CALCIUM LEVEL 8.9 MG/DL (8.3-10.6); CREATININE FOR GFR 1.24 MG/DL (0.55-1.30); GLOMERULAR FILTRATION RATE 43.9 (>32); POTASSIUM SERUM 3.4 MMOL/L (3.5-5.1)
[2023-02-10 19:11] LABS: SODIUM,RANDOM URINE 20 MMOL/L
[2023-02-10 19:25] LABS: OSMOLALITY URINE 187 MOSM/KG (50-1400)
[2023-02-10] MEDS: SENNA 8.6 MG TAB (SENOKOT) PO SCH (21:41)
[2023-02-10] MEDS: ATORVASTATIN 20 MG TAB PO SCH (21:42)
[2023-02-10] MEDS: LATANOPROST 0.005% OPHTH SOLN 2.5 ML OU SCH (21:42)
[2023-02-10] MEDS: TRIAMCINOLONE ACET 0.1% OINTMENT 15GM TOP SCH (21:43)
[2023-02-11 00:22] LABS: CALCIUM LEVEL 8.1 MG/DL (8.3-10.6); CREATININE FOR GFR 1.31 MG/DL (0.55-1.30); GLOMERULAR FILTRATION RATE 41.2 (>32); POTASSIUM SERUM 3.7 MMOL/L (3.5-5.1)
[2023-02-11 03:34] VITALS: BP 147/67
[2023-02-11 06:06] LABS: BASO # 0.1 10^3/uL (0.0-0.2); BASO % 1.1 % (0.0-1.0); EOS # 0.2 10^3/uL (0.0-0.5); EOS % 3.4 % (0.0-3.0); HEMATOCRIT 33.2 % (36.0-47.0); HEMOGLOBIN 11.3 g/dl (12.0-15.5); LYMPH # 1.1 10^3/uL (1.5-5.0); LYMPH % 18.4 % (24.0-44.0); MEAN CORPUSCULAR HEMOGLOBIN 28.2 pg (27.0-33.0); MEAN CORPUSCULAR VOLUME 82.8 fl (80.0-96.0); MONO # 0.7 10^3/uL (0.0-0.8); MONO % 11.5 % (2.0-8.0); NEUTROPHILS % 64.8 % (36.0-66.0); PLATELET COUNT, AUTOMATED 217 10^3/uL (150-450); RED BLOOD COUNT 4.01 10^6/uL (4.00-5.40); WHITE BLOOD COUNT 6.2 10^3/uL (4.0-10.0)
[2023-02-11 06:30] LABS: CALCIUM LEVEL 8.5 MG/DL (8.3-10.6); CREATININE FOR GFR 1.28 MG/DL (0.55-1.30); GLOMERULAR FILTRATION RATE 42.3 (>32); POTASSIUM SERUM 3.3 MMOL/L (3.5-5.1)
[2023-02-11] MEDS: LEVOTHYROXINE 50MCG TABLET (0.05MG) PO SCH (06:32)
[2023-02-11 07:54] VITALS: BP 162/54
[2023-02-11] MEDS: SODIUM CHLORIDE 1 GM TAB PO SCH (08:21)
[2023-02-11] MEDS: KCL 10MEQ/100ML SWI (KRUN) 10 MEQ in IV 1 EA IV SCH ×2 (08:21→09:25)
[2023-02-11] MEDS: PANTOPRAZOLE 40MG VIAL IV SCH (08:21)
[2023-02-11] MEDS: DOCUSATE SODIUM 100MG CAPSULE PO SCH (08:22)
[2023-02-11] MEDS: TRIAMCINOLONE ACET 0.1% OINTMENT 15GM TOP SCH (08:22)
[2023-02-11] MEDS: ALPRAZolam 0.5 MG TAB PO SCH (08:22)
[2023-02-11] MEDS: AMIODARONE 100MG TABLET (PACERONE) PO SCH (08:22)
[2023-02-11] MEDS: ASPIRIN 81MG CHEW TABLET PO SCH (08:22)
[2023-02-11] MEDS: TOBRADEX OPHTH SUSP 2.5 ML OD SCH (08:23)
[2023-02-11] MEDS ORDERED: SENN18TA PO (09:16)
[2023-02-11] MEDS ORDERED: PANT40TA29 PO (09:16)
[2023-02-11] MEDS ORDERED: FLOM0.4C39 PO (09:16)
[2023-02-11] MEDS ORDERED: COLA100C5 PO (09:16)
[2023-02-11] MEDS ORDERED: TRIA1OI TOP (09:16)
[2023-02-11] MEDS ORDERED: SODI1TAB12 PO (12:30)
[2023-02-11] MEDS ORDERED: TAMSULOSIN 0.4 MG CAP PO SCH (21:00)
== END 2023-02-11 13:00 | disposition home health service (06) | DRG 641 ==
LOC: M ED 10:46 → EDBD 10:46 → M ED INP 15:18 → M PCU 17:04
PROVIDERS: ADMIT Internal Medicine Nephrology; ATTEND Internal Medicine Nephrology
DX: E87.1 Hypo-osmolality and hyponatremia (principal); I48.92 Unspecified atrial flutter; I25.10 Atherosclerotic heart disease of native coronary artery without angina pectoris; E03.9 Hypothyroidism, unspecified; M85.88 Other specified disorders of bone density and structure, other site; E78.00 Pure hypercholesterolemia, unspecified; I12.9 Hypertensive chronic kidney disease with stage 1 through stage 4 chronic kidney disease, or unspecified chronic kidney disease; N18.30 Chronic kidney disease, stage 3 unspecified; I34.0 Nonrheumatic mitral (valve) insufficiency; H40.9 Unspecified glaucoma; R11.2 Nausea with vomiting, unspecified; H35.30 Unspecified macular degeneration; R33.9 Retention of urine, unspecified; F41.0 Panic disorder [episodic paroxysmal anxiety]; M48.061 Spinal stenosis, lumbar region without neurogenic claudication; I48.0 Paroxysmal atrial fibrillation; K21.9 Gastro-esophageal reflux disease without esophagitis; I77.1 Stricture of artery; R26.89 Other abnormalities of gait and mobility; Z90.79 Acquired absence of other genital organ(s); Z95.5 Presence of coronary angioplasty implant and graft; Z87.891 Personal history of nicotine dependence; Z20.822 Contact with and (suspected) exposure to COVID-19; I25.2 Old myocardial infarction; S93.601A Unspecified sprain of right foot, initial encounter; S20.222A Contusion of left back wall of thorax, initial encounter; W01.0XXA Fall on same level from slipping, tripping and stumbling without subsequent striking against object, initial encounter; Y92.9 Unspecified place or not applicable; Z79.82 Long term (current) use of aspirin; Z79.890 Hormone replacement therapy; Z79.891 Long term (current) use of opiate analgesic; Z79.899 Other long term (current) drug therapy; Z88.2 Allergy status to sulfonamides; Z88.6 Allergy status to analgesic agent; Z88.1 Allergy status to other antibiotic agents; Z88.8 Allergy status to other drugs, medicaments and biological substances; L23.9 Allergic contact dermatitis, unspecified cause

== ENCOUNTER → 2023-02-18 | Outpatient (REF) | payer MEDICARE ==
[~2023-02-18] MED LIST changes: +ALPR0.5T3 PO; +AMIO200T49 PO; +ASPI81CH33 PO; +COLA100C5 PO; +FLOM0.4C39 PO; +PANT40TA29 PO; +SENN18TA PO; +SODI1TAB12 PO; +TOBRSUS8 OD; +TRIA1OI TOP
[2023-02-18 16:15] LABS: CALCIUM LEVEL 8.9 MG/DL (8.3-10.6); CREATININE FOR GFR 1.2 MG/DL (0.55-1.30); GLOMERULAR FILTRATION RATE 45.6 (>32); POTASSIUM SERUM 3.6 MMOL/L (3.5-5.1)
== END ==
LOC: M SFHCADAM 13:50
PROVIDERS: ATTEND Physician Assistant
DX: E87.1 Hypo-osmolality and hyponatremia (principal); R33.9 Retention of urine, unspecified

== ENCOUNTER → 2023-06-25 | Outpatient (CLI) | payer MEDICARE ==
[~2023-06-25] MED LIST changes: +SENN-111 PO; -SENN18TA PO
[2023-06-25 16:11] LABS: HEMATOCRIT 38.4 % (36.0-47.0); HEMOGLOBIN 12.5 g/dl (12.0-15.5); MEAN CORPUSCULAR HEMOGLOBIN 27.7 pg (27.0-33.0); MEAN CORPUSCULAR HGB CONC 32.6 g/dl (32.0-36.5); PLATELET COUNT, AUTOMATED 274 10^3/uL (150-450); RED BLOOD COUNT 4.52 10^6/uL (4.00-5.40); WHITE BLOOD COUNT 9.3 10^3/uL (4.0-10.0)
[2023-06-25 16:30] LABS: FREE T4 1.63 NG/DL (0.89-1.76); THYROID STIMULATING HORMONE 5.594 uIU/ML (0.55-4.78)
[2023-06-25 16:31] LABS: ALBUMIN 4.1 G/DL (3.2-5.2); BILIRUBIN,TOTAL 0.6 MG/DL (0.3-1.2); CALCIUM LEVEL 9.3 MG/DL (8.3-10.6); CHOLESTEROL RISK RATIO 2.11 (<5); CREATININE FOR GFR 1.07 MG/DL (0.55-1.30); HDL CHOLESTEROL 97.6 MG/DL (>40); LDL CHOLESTEROL 84.6 MG/DL (<100); MAGNESIUM LEVEL 1.9 MG/DL (1.8-2.4); NON-HDL-C 108.4 MG/DL; POTASSIUM SERUM 4.1 MMOL/L (3.5-5.1); TOTAL PROTEIN 6.7 G/DL (5.7-8.2)
== END ==
LOC: M PLALAB 13:16
PROVIDERS: ATTEND Family Medicine
DX: E03.9 Hypothyroidism, unspecified (principal); G25.1 Drug-induced tremor; I48.92 Unspecified atrial flutter; E78.2 Mixed hyperlipidemia; I25.10 Atherosclerotic heart disease of native coronary artery without angina pectoris; F32.9 Major depressive disorder, single episode, unspecified

== ENCOUNTER → 2023-07-27 | Outpatient (REF) | payer MEDICARE ==
[~2023-07-27] MED LIST changes: -CEFD300C41 PO; +CEFD300C42 PO
[2023-07-27 18:09] LABS: CALCIUM LEVEL 9.5 MG/DL (8.3-10.6); CREATININE FOR GFR 1.24 MG/DL (0.55-1.30); GLOMERULAR FILTRATION RATE 43.9 (>32); POTASSIUM SERUM 3.8 MMOL/L (3.5-5.1)
[2023-07-27 18:11] LABS: FREE T4 2.05 NG/DL (0.89-1.76); THYROID STIMULATING HORMONE 0.454 uIU/ML (0.55-4.78)
== END ==
LOC: M SFHCADAM 16:26
PROVIDERS: ATTEND Physician Assistant
DX: R25.1 Tremor, unspecified (principal); E03.9 Hypothyroidism, unspecified

== ENCOUNTER → 2023-09-30 | Outpatient (CLI) | payer MEDICARE ==
[~2023-09-30] MED LIST changes: +CEFD1CAP9 PO; -CEFD300C42 PO
== END ==
LOC: M SOG 13:08
PROVIDERS: ATTEND Physician Assistant
DX: M19.011 Primary osteoarthritis, right shoulder (principal); M25.511 Pain in right shoulder

== ENCOUNTER → 2024-01-26 | Outpatient (REF) | payer MEDICARE ==
[2024-01-26 18:42] LABS: ALBUMIN 4.4 G/DL (3.2-5.2); BILIRUBIN,TOTAL 0.7 MG/DL (0.3-1.2); CALCIUM LEVEL 9.8 MG/DL (8.3-10.6); CREATININE FOR GFR 1.14 MG/DL (0.55-1.30); GLOMERULAR FILTRATION RATE 48.2 (>32); POTASSIUM SERUM 4.2 MMOL/L (3.5-5.1)
[2024-01-26 18:43] LABS: HEMATOCRIT 39.6 % (36.0-47.0); HEMOGLOBIN 12.7 g/dl (12.0-15.5); MEAN CORPUSCULAR HEMOGLOBIN 27.7 pg (27.0-33.0); MEAN CORPUSCULAR HGB CONC 32.1 g/dl (32.0-36.5); MEAN CORPUSCULAR VOLUME 86.3 fl (80.0-96.0); PLATELET COUNT, AUTOMATED 267 10^3/uL (150-450); RED BLOOD COUNT 4.59 10^6/uL (4.00-5.40)
[2024-01-26 18:46] LABS: FREE T4 1.46 NG/DL (0.89-1.76); THYROID STIMULATING HORMONE 5.801 uIU/ML (0.55-4.78)
== END ==
LOC: M SFHCADAM 14:40
PROVIDERS: ATTEND Family Medicine
DX: E03.9 Hypothyroidism, unspecified (principal); I48.92 Unspecified atrial flutter; I25.10 Atherosclerotic heart disease of native coronary artery without angina pectoris

== ENCOUNTER → 2024-01-26 | Outpatient (REF) | payer MEDICARE | LOC: M LABDRWAD 18:19 | PROVIDERS: ATTEND Physician Assistant | DX: I48.0 Paroxysmal atrial fibrillation (principal); I10 Essential (primary) hypertension ==

== ENCOUNTER → 2024-05-02 | Outpatient (REF) | payer MEDICARE ==
[~2024-05-02] MED LIST changes: +CRAN500C11 PO; -CVS500CA5 PO
[2024-05-02 18:07] LABS: APPEARANCE, URINE HAZY (CLEAR); BACTERIA, URINE AUTO 1+ (NEGATIVE); BILIRUBIN, URINE AUTO NEGATIVE (NEGATIVE); BLOOD, URINE BLOOD 1+ (NEGATIVE); COLOR, URINE YELLOW (YELLOW); GLUCOSE, URINE (UA) AUTO NEGATIVE (NEGATIVE); KETONE, URINE AUTO NEGATIVE (NEGATIVE); LEUKOCYTE ESTERASE, URINE AUTO 3+ (NEGATIVE); NITRITE, URINE AUTO NEGATIVE (NEGATIVE); PROTEIN, URINE AUTO NEGATIVE (NEGATIVE); RBC, URINE AUTO 2 /HPF (0-3); SPECIFIC GRAVITY URINE AUTO 1.005 (1.002-1.035); SQUAMOUS EPITHELIAL CELL UR AU 0 /HPF (0-6); UROBILINOGEN, URINE AUTO 0.2 mg/dL (0.0-2.0); WBC, URINE AUTO 100 /HPF (0-3)
== END ==
LOC: M SFHCADAM 14:04
PROVIDERS: ATTEND Family Medicine
DX: R30.0 Dysuria (principal)

== ENCOUNTER 2024-05-07 10:53 | Inpatient (IN) | payer MEDICARE ==
[~2024-05-07] VITALS: Ht 167.6 cm; Wt 61.1 kg
[2024-05-07 11:38] LABS: BASO % 0.5 % (0.0-1.0); EOS % 0.2 % (0.0-3.0); HEMATOCRIT 35.2 % (36.0-47.0); HEMOGLOBIN 12.5 g/dl (12.0-15.5); LYMPH # 0.6 10^3/uL (1.5-5.0); LYMPH % 7.2 % (24.0-44.0); MEAN CORPUSCULAR HEMOGLOBIN 28.2 pg (27.0-33.0); MEAN CORPUSCULAR HGB CONC 35.5 g/dl (32.0-36.5); MEAN CORPUSCULAR VOLUME 79.3 fl (80.0-96.0); MONO # 0.6 10^3/uL (0.0-0.8); MONO % 6.6 % (2.0-8.0); NEUTROPHILS # 7.1 10^3/uL (1.5-8.5); NEUTROPHILS % 84.5 % (36.0-66.0); PLATELET COUNT, AUTOMATED 251 10^3/uL (150-450); RED BLOOD COUNT 4.44 10^6/uL (4.00-5.40); WHITE BLOOD COUNT 8.4 10^3/uL (4.0-10.0)
[2024-05-07 12:22] LABS: BILIRUBIN,DIRECT 0.2 MG/DL (<0.4); BILIRUBIN,TOTAL 0.9 MG/DL (0.3-1.2); CK-MB VALUE MASS 2.5 NG/ML (<3.6); CREATININE FOR GFR 0.95 MG/DL (0.55-1.30); GLOMERULAR FILTRATION RATE 59.5 (>32); MB/CK RELATIVE INDEX 2.47 (< OR =4); POTASSIUM SERUM 3.1 MMOL/L (3.5-5.1); TOTAL PROTEIN 6.5 G/DL (5.7-8.2)
[2024-05-07 13:10] LABS: CK-MB VALUE MASS 2.2 NG/ML (<3.6)
[2024-05-07 13:13] LABS: MB/CK RELATIVE INDEX 2.15 (< OR =4)
[2024-05-07] MEDS: PANTOPRAZOLE 40MG VIAL IV ONE (13:46)
[2024-05-07] MEDS ORDERED: ISOVUE-370 76% 100ML VIAL As Ordered ONE (14:47)
[2024-05-07] MEDS: GASTROGRAFIN SOLUTION 30ML PO SCH (15:25)
[2024-05-07] MEDS: LIDOCAINE 2% 5ML JELLY UROJET TOP ONE (18:55)
[2024-05-07] MEDS: KCL 10MEQ/100ML SWI (KRUN) 10 MEQ in IV 1 EA IV ONE (19:01)
[2024-05-07] MEDS ORDERED: HOME MED LIST COMPLETE! XX SCH (19:50)
[2024-05-07] MEDS ORDERED: NITROGLYCERIN 0.4MG SUBL TABLET SL PRN (20:15)
[2024-05-07] MEDS ORDERED: ALPRAZolam 0.5 MG TAB PO PRN (20:15)
[2024-05-07] MEDS ORDERED: ONDANSETRON 4MG 2ML VIAL IV PRN (21:00)
[2024-05-07] MEDS: PANTOPRAZOLE 40MG VIAL IV SCH (21:00)
[2024-05-07] MEDS: CO-ENZYME Q10 50 MG CAP PO SCH (21:14)
[2024-05-07] MEDS: INDAPAMIDE 1.25MG TABLET PO SCH (21:14)
[2024-05-07] MEDS: AMIODARONE 100MG TABLET (PACERONE) PO SCH (21:14)
[2024-05-07] MEDS: ATORVASTATIN 20 MG TAB PO SCH (21:14)
[2024-05-07] MEDS: ALPRAZolam 0.5 MG TAB PO SCH (21:15)
[2024-05-07] MEDS: KCL 10MEQ/100ML SWI (KRUN) 10 MEQ in IV 1 EA IV SCH (21:16)
[2024-05-07] MEDS: SUCRALFATE 1 GM TAB PO SCH (21:16)
[2024-05-07 21:53] LABS: OSMOLALITY URINE 200 MOSM/KG (50-1400)
[2024-05-07 22:06] LABS: SODIUM,RANDOM URINE 24 MMOL/L
[2024-05-07] MEDS: KCL 20MEQ in NS 1000ML 1,000 ML IV SCH (22:42)
[2024-05-07] MEDS: LATANOPROST 0.005% OPHTH SOLN 2.5 ML OU SCH (22:46)
[2024-05-08] MEDS: hydrALAZINE 20MG/ML 1ML VIAL IV PRN (02:07)
[2024-05-08 04:03] LABS: CREATININE FOR GFR 0.97 MG/DL (0.55-1.30); GLOMERULAR FILTRATION RATE 58.1 (>32); POTASSIUM SERUM 3.6 MMOL/L (3.5-5.1)
[2024-05-08] MEDS: LEVOTHYROXINE 50MCG TABLET (0.05MG) PO SCH (06:13)
[2024-05-08 07:41] LABS: HEMATOCRIT 36.8 % (36.0-47.0); HEMOGLOBIN 12.7 g/dl (12.0-15.5); MEAN CORPUSCULAR HEMOGLOBIN 27.7 pg (27.0-33.0); MEAN CORPUSCULAR HGB CONC 34.5 g/dl (32.0-36.5); MEAN CORPUSCULAR VOLUME 80.3 fl (80.0-96.0); PLATELET COUNT, AUTOMATED 267 10^3/uL (150-450); RED BLOOD COUNT 4.58 10^6/uL (4.00-5.40); WHITE BLOOD COUNT 9.8 10^3/uL (4.0-10.0)
[2024-05-08 08:12] LABS: CREATININE FOR GFR 1.09 MG/DL (0.55-1.30); GLOMERULAR FILTRATION RATE 50.8 (>32); POTASSIUM SERUM 3.8 MMOL/L (3.5-5.1)
[2024-05-08 08:13] LABS: FREE T4 1.42 NG/DL (0.89-1.76); THYROID STIMULATING HORMONE 10.629 uIU/ML (0.55-4.78)
[2024-05-08] MEDS ORDERED: ENOXAPARIN 40MG/0.4ML SYRINGE (J1650 PER 10MG) SC SCH (09:00)
[2024-05-08] MEDS: ASPIRIN 81MG CHEW TABLET PO SCH (10:13)
[2024-05-08] MEDS: PANTOPRAZOLE 40MG TAB (PROTONIX) PO SCH (10:15)
[2024-05-08] MEDS: FOSFOMYCIN TROMETHAMINE 3 GM POWDER PACKET (MONUROL) PO ONE (13:08)
[2024-05-08 15:00] VITALS: BP 168/46; TEMP 97.5; O2SAT 99
[2024-05-08 20:00] VITALS: BP 103/54; TEMP 97.5; O2SAT 97
[2024-05-09 04:00] VITALS: BP 155/61; TEMP 97.2; O2SAT 99
[2024-05-09] MEDS: LEVOTHYROXINE 75MCG TABLET (0.075MG) PO SCH (05:13)
[2024-05-09 07:31] LABS: HEMATOCRIT 32.9 % (36.0-47.0); HEMOGLOBIN 11.1 g/dl (12.0-15.5); MEAN CORPUSCULAR HGB CONC 33.7 g/dl (32.0-36.5); MEAN CORPUSCULAR VOLUME 82.9 fl (80.0-96.0); PLATELET COUNT, AUTOMATED 235 10^3/uL (150-450); RED BLOOD COUNT 3.97 10^6/uL (4.00-5.40); WHITE BLOOD COUNT 7.9 10^3/uL (4.0-10.0)
[2024-05-09 07:55] LABS: CALCIUM LEVEL 8.4 MG/DL (8.3-10.6); GLOMERULAR FILTRATION RATE 56.1 (>32); POTASSIUM SERUM 3.6 MMOL/L (3.5-5.1)
[2024-05-09] MEDS ORDERED: PANT40TA29 PO (10:01)
[2024-05-09] MEDS ORDERED: LEVO75TA4 PO (10:01)
[2024-05-09] MEDS ORDERED: SUCR1TA PO (10:01)
[2024-05-09] MEDS ORDERED: ONDA-83 PO (10:01)
[2024-05-09] MEDS ORDERED: FOSF3PAC2 PO (10:08)
[2024-05-09 12:00] VITALS: BP 129/56; TEMP 97; O2SAT 99
[2024-05-09] MEDS ORDERED: BETH10TA4 PO (14:16)
== END 2024-05-09 15:55 | disposition home health service (06) | DRG 641 ==
LOC: M ED 10:53 → M ED INP 20:20 → M MS5PR 05-08 14:45
PROVIDERS: ADMIT Internal Medicine; ATTEND Internal Medicine
DX: E87.6 Hypokalemia (principal); I48.92 Unspecified atrial flutter; I12.9 Hypertensive chronic kidney disease with stage 1 through stage 4 chronic kidney disease, or unspecified chronic kidney disease; E03.9 Hypothyroidism, unspecified; E87.1 Hypo-osmolality and hyponatremia; K20.90 Esophagitis, unspecified without bleeding; I25.10 Atherosclerotic heart disease of native coronary artery without angina pectoris; M85.88 Other specified disorders of bone density and structure, other site; I34.0 Nonrheumatic mitral (valve) insufficiency; I16.0 Hypertensive urgency; E78.00 Pure hypercholesterolemia, unspecified; N18.30 Chronic kidney disease, stage 3 unspecified; H40.9 Unspecified glaucoma; R33.9 Retention of urine, unspecified; H35.30 Unspecified macular degeneration; F41.0 Panic disorder [episodic paroxysmal anxiety]; M48.061 Spinal stenosis, lumbar region without neurogenic claudication; R26.89 Other abnormalities of gait and mobility; Z90.79 Acquired absence of other genital organ(s); Z95.828 Presence of other vascular implants and grafts; Z79.890 Hormone replacement therapy; Z95.5 Presence of coronary angioplasty implant and graft; Z79.899 Other long term (current) drug therapy; Z88.1 Allergy status to other antibiotic agents; Z88.2 Allergy status to sulfonamides; Z88.8 Allergy status to other drugs, medicaments and biological substances; Z87.891 Personal history of nicotine dependence

== ENCOUNTER → 2024-07-26 | Outpatient (REF) | payer MEDICARE ==
[~2024-07-26] MED LIST changes: +BETH10TA4 PO; -CRAN500C11 PO; +CVS500CA5 PO; +FOSF3PAC2 PO; +LEVO75TA4 PO; +ONDA-83 PO; -SENN-111 PO; +SENN-165 PO; +SUCR1TA PO
== END ==
LOC: M SFHCADAM 12:40
PROVIDERS: ATTEND Physician Assistant
DX: N39.0 Urinary tract infection, site not specified (principal)

== ENCOUNTER → 2024-08-07 | Outpatient (CLI) | payer MEDICARE ==
[2024-08-07 17:36] LABS: HEMATOCRIT 37.2 % (36.0-47.0); HEMOGLOBIN 12.3 g/dl (12.0-15.5); MEAN CORPUSCULAR HEMOGLOBIN 27.3 pg (27.0-33.0); MEAN CORPUSCULAR HGB CONC 33.1 g/dl (32.0-36.5); MEAN CORPUSCULAR VOLUME 82.5 fl (80.0-96.0); PLATELET COUNT, AUTOMATED 296 10^3/uL (150-450); RED BLOOD COUNT 4.51 10^6/uL (4.00-5.40); WHITE BLOOD COUNT 9.6 10^3/uL (4.0-10.0)
[2024-08-07 18:08] LABS: FREE T4 1.91 NG/DL (0.89-1.76); THYROID STIMULATING HORMONE 2.895 uIU/ML (0.55-4.78)
[2024-08-07 18:09] LABS: ALBUMIN 4.1 G/DL (3.2-5.2); BILIRUBIN,TOTAL 0.7 MG/DL (0.3-1.2); CREATININE FOR GFR 1.2 MG/DL (0.55-1.30); GLOMERULAR FILTRATION RATE 45.5 (>32); POTASSIUM SERUM 4.7 MMOL/L (3.5-5.1); TOTAL PROTEIN 7.1 G/DL (5.7-8.2)
== END ==
LOC: M PLALAB 14:46
PROVIDERS: ATTEND Family Medicine
DX: I48.0 Paroxysmal atrial fibrillation (principal); E23.3 Hypothalamic dysfunction, not elsewhere classified; E03.9 Hypothyroidism, unspecified

== ENCOUNTER → 2024-08-07 | Outpatient (CLI) | payer MEDICARE | LOC: M PLALAB 14:50 | PROVIDERS: ATTEND Physician Assistant | DX: I48.0 Paroxysmal atrial fibrillation (principal) ==

== ENCOUNTER → 2025-01-24 | Outpatient (REF) | payer MEDICARE | LOC: M LAB REF 14:07 | PROVIDERS: ATTEND Nurse Practitioner Family | DX: R30.0 Dysuria (principal) ==

== ENCOUNTER → 2025-02-20 | Outpatient (CLI) | payer MEDICARE ==
[~2025-02-20] MED LIST changes: -FLOM0.4C39 PO; +TAMS-18 PO
== END ==
LOC: M ADAMS 13:19
PROVIDERS: ATTEND Physician Assistant
DX: I48.0 Paroxysmal atrial fibrillation (principal)

== ENCOUNTER → 2025-02-20 | Outpatient (REF) | payer MEDICARE ==
[2025-02-20 17:24] LABS: ALBUMIN 3.8 G/DL (3.2-5.2); BILIRUBIN,TOTAL 0.5 MG/DL (0.3-1.2); CHOLESTEROL RISK RATIO 2.35 (<5); CREATININE FOR GFR 1.07 MG/DL (0.55-1.30); GLOMERULAR FILTRATION RATE 50.6 (>32); HDL CHOLESTEROL 83.3 MG/DL (>40); LDL CHOLESTEROL 94.1 MG/DL (<100); NON-HDL-C 112.7 MG/DL; POTASSIUM SERUM 4.4 MMOL/L (3.5-5.1); TOTAL PROTEIN 6.5 G/DL (5.7-8.2)
[2025-02-20 17:26] LABS: FREE T4 1.77 NG/DL (0.89-1.76); THYROID STIMULATING HORMONE 0.869 uIU/ML (0.55-4.78)
[2025-02-20 17:31] LABS: HEMATOCRIT 34.2 % (36.0-47.0); HEMOGLOBIN 11.1 g/dl (12.0-15.5); MEAN CORPUSCULAR HEMOGLOBIN 27.3 pg (27.0-33.0); MEAN CORPUSCULAR HGB CONC 32.5 g/dl (32.0-36.5); PLATELET COUNT, AUTOMATED 253 10^3/uL (150-450); RED BLOOD COUNT 4.07 10^6/uL (4.00-5.40); WHITE BLOOD COUNT 8.8 10^3/uL (4.0-10.0)
== END ==
LOC: M SFHCADAM 13:14
PROVIDERS: ATTEND Physician Assistant
DX: E78.2 Mixed hyperlipidemia (principal); R30.0 Dysuria; I25.10 Atherosclerotic heart disease of native coronary artery without angina pectoris; I11.9 Hypertensive heart disease without heart failure; E03.2 Hypothyroidism due to medicaments and other exogenous substances; I48.0 Paroxysmal atrial fibrillation

== ENCOUNTER → 2025-02-23 | Outpatient (REF) | payer MEDICARE | LOC: M SFHCADAM 12:56 | PROVIDERS: ATTEND Physician Assistant | DX: R30.0 Dysuria (principal) ==

== ENCOUNTER → 2025-05-09 | Outpatient (REF) | payer MEDICARE ==
[~2025-05-09] MED LIST changes: -AMIO200T49 PO; +AMIO200T54 PO; +AMOX875T2 PO; +DAYT1LIQ PO; +DOXY-440 PO; +LISI40TA10 PO; -LISI40TA4 PO; +LOSA25TA13 PO; +SFHGLU4TA PO
[2025-05-09 17:40] LABS: PLATELET COUNT, AUTOMATED 236 10^3/uL (150-450)
[2025-05-09 18:03] LABS: CALCIUM LEVEL 9.0 MG/DL (8.3-10.6); CARBON DIOXIDE LEVEL 25 MMOL/L (20-31); CHLORIDE LEVEL 106 MMOL/L (98-107); CREATININE FOR GFR 1.32 MG/DL (0.55-1.30); GLOMERULAR FILTRATION RATE 39.3 (>32); IRON (FE) 29 UG/DL (50-170); PERCENT SATURATION 7.8 % (13.2-45.0); POTASSIUM SERUM 4.3 MMOL/L (3.5-5.1); SODIUM LEVEL 143 MMOL/L (136-145)
[2025-05-09 18:07] LABS: FREE T4 1.55 NG/DL (0.89-1.76)
[2025-05-09 18:10] LABS: VITAMIN B12 LEVEL 537 PG/ML (211-911)
== END ==
LOC: M SFHCADAM 14:57
PROVIDERS: ATTEND Family Medicine
DX: N18.31 Chronic kidney disease, stage 3a (principal); I25.10 Atherosclerotic heart disease of native coronary artery without angina pectoris; D64.9 Anemia, unspecified; J18.9 Pneumonia, unspecified organism; E23.3 Hypothalamic dysfunction, not elsewhere classified; E03.2 Hypothyroidism due to medicaments and other exogenous substances

== ENCOUNTER → 2025-08-24 | Outpatient (CLI) | payer MEDICARE ==
[2025-08-24 18:59] LABS: PLATELET COUNT, AUTOMATED 288 10^3/uL (150-450)
[2025-08-24 20:05] LABS: ALT/SGPT 29.0 U/L (7.0-40); AST/SGOT 33.0 U/L (<34); CALCIUM LEVEL 9.1 MG/DL (8.3-10.6); CARBON DIOXIDE LEVEL 26.0 MMOL/L (20-31); CHLORIDE LEVEL 94.0 MMOL/L (98-107); CREATININE FOR GFR 1.28 MG/DL (0.55-1.30); GLOMERULAR FILTRATION RATE 40.8 (>32); MAGNESIUM LEVEL 2.1 MG/DL (1.8-2.4); POTASSIUM SERUM 4.6 MMOL/L (3.5-5.1); SODIUM LEVEL 132.0 MMOL/L (136-145)
== END ==
LOC: M ADAMS 14:55
PROVIDERS: ATTEND Physician Assistant
DX: I48.0 Paroxysmal atrial fibrillation (principal)

== ENCOUNTER → 2025-08-24 | Outpatient (REF) | payer MEDICARE ==
[2025-08-24 18:56] LABS: PLATELET COUNT, AUTOMATED 289 10^3/uL (150-450)
[2025-08-24 20:04] LABS: ALT/SGPT 29.0 U/L (7.0-40); AST/SGOT 34.0 U/L (<34); CALCIUM LEVEL 9.0 MG/DL (8.3-10.6); CARBON DIOXIDE LEVEL 26.0 MMOL/L (20-31); CHLORIDE LEVEL 94.0 MMOL/L (98-107); CHOLESTEROL LEVEL 213.0 MG/DL (<200); CHOLESTEROL RISK RATIO 2.2 (<5); CREATININE FOR GFR 1.28 MG/DL (0.55-1.30); GLOMERULAR FILTRATION RATE 40.8 (>32); LDL CHOLESTEROL 100.3 MG/DL (<100); MAGNESIUM LEVEL 2.1 MG/DL (1.8-2.4); NON-HDL-C 116.3 MG/DL; POTASSIUM SERUM 4.6 MMOL/L (3.5-5.1); SODIUM LEVEL 131.0 MMOL/L (136-145); TRIGLYCERIDES LEVEL 80.0 MG/DL (<150)
[2025-08-24 20:08] LABS: FREE T4 1.72 NG/DL (0.89-1.76)
== END ==
LOC: M SFHCADAM 14:30
PROVIDERS: ATTEND Family Medicine
DX: N18.31 Chronic kidney disease, stage 3a (principal); I11.9 Hypertensive heart disease without heart failure; E03.2 Hypothyroidism due to medicaments and other exogenous substances; I48.92 Unspecified atrial flutter; E78.2 Mixed hyperlipidemia; R82.90 Unspecified abnormal findings in urine

== ENCOUNTER → 2025-08-27 | Outpatient (REF) | payer MEDICARE ==
[2025-08-27 14:15] LABS: APPEARANCE, URINE CLOUDY (CLEAR); BACTERIA, URINE AUTO 1+ (NEGATIVE); BILIRUBIN, URINE AUTO NEGATIVE (NEGATIVE); BLOOD, URINE BLOOD NEGATIVE (NEGATIVE); GLUCOSE, URINE (UA) AUTO NEGATIVE (NEGATIVE); KETONE, URINE AUTO NEGATIVE (NEGATIVE); LEUKOCYTE ESTERASE, URINE AUTO 3+ (NEGATIVE); NITRITE, URINE AUTO NEGATIVE (NEGATIVE); PROTEIN, URINE AUTO NEGATIVE (NEGATIVE); RBC, URINE AUTO 56 /HPF (0-3); SPECIFIC GRAVITY URINE AUTO 1.005 (1.002-1.035); SQUAMOUS EPITHELIAL CELL UR AU 0 /HPF (0-6); UROBILINOGEN, URINE AUTO 0.2 mg/dL (0.0-2.0); WBC, URINE AUTO TNTC /HPF (0-3)
== END ==
LOC: M SFHCADAM 13:08
PROVIDERS: ATTEND Family Medicine
DX: R82.90 Unspecified abnormal findings in urine (principal)